=== PATIENT | female | born 1935 | race Caucasian/White ===

== ENCOUNTER → 2017-03-06 | Outpatient (CLI) | payer BC, MEDICARE ==
--- NOTE | 2017-03-09 13:57 | MM ---
Reason for exam: screening (asymptomatic). History: Patient is postmenopausal, history of other cancer, and is nulliparous. Family history of breast cancer in maternal aunt at age 50 and breast cancer in paternal aunt at age 50. Physical Findings: A clinical breast exam by your physician is recommended on an annual basis and results should be correlated with mammographic findings. MG 3D Screening Mammo W/Cad Bilateral CC and MLO view(s) were taken. No prior studies available for comparison. The breast tissue is heterogeneously dense. This may lower the sensitivity of mammography. Finding: There are typically benign coarse diffuse/scattered calcifications in both breasts. There is no discrete abnormality. ASSESSMENT: Benign, BI-RAD 2 RECOMMENDATION: Routine screening mammogram of both breasts in 1 year.
== END | disposition home or self-care (01) ==
LOC: RADMAMWWP 11:38
PROVIDERS: ATTEND Internal Medicine Geriatric Medicine
DX: Z12.31 Encounter for screening mammogram for malignant neoplasm of breast (principal)
CPT/HCPCS: 77063; G0202

== ENCOUNTER → 2018-01-28 | Outpatient (CLI) | payer MEDICARE ==
[2018-01-28 15:52] LABS: Basophils % (A) 1 %; Eosinophils # (A) 0.2 k/uL (0-0.7); Eosinophils % (A) 5 %; HCT 40.3 % (34.0-46.0); HGB 13.2 gm/dL (11.4-16.0); Lymphocytes # (A) 0.6 k/uL (1.0-4.8); Lymphocytes % (A) 13 %; MCH 30.8 pg (25.0-35.0); MCHC 32.6 g/dL (31.0-37.0); MCV 94.4 fL (80.0-100.0); Mean Platelet Volume 7.6; Monocytes # (A) 0.3 k/uL (0-1.0); Monocytes % (A) 7 %; Neutrophils # (A) 3.3 k/uL (1.3-7.7); Neutrophils % (A) 73 %; Platelet Count 230 k/uL (150-450); RBC 4.27 m/uL (3.80-5.40); RDW 13.6 % (11.5-15.5); WBC 4.5 k/uL (3.8-10.6)
[2018-01-28 16:02] LABS: Albumin 3.7 g/dL (3.5-5.0); Calcium 10.2 mg/dL (8.4-10.2); Potassium 4.3 mmol/L (3.5-5.1); Total Bilirubin 0.4 mg/dL (0.2-1.3); Total Protein 6.4 g/dL (6.3-8.2)
[2018-01-29 02:31] LABS: Iron Saturation 19.87 (12.00-45.00)
[2018-01-29 02:39] LABS: Vitamin D 25 Hydroxy 50.9 ng/mL (30.0-100.0)
== END | disposition home or self-care (01) ==
LOC: LABWHC1 15:22
PROVIDERS: ATTEND Nurse Practitioner Acute Care
DX: E55.9 Vitamin D deficiency, unspecified (principal); R53.83 Other fatigue; R26.89 Other abnormalities of gait and mobility; R41.3 Other amnesia
CPT/HCPCS: 36415; 80053; 82306; 82607; 83540; 83550; 84207; 84466; 85025

== ENCOUNTER 2018-02-03 23:32 | Emergency (ER) | payer MEDICARE ==
[2018-02-03 23:55] VITALS: TEMP 96.8
[2018-02-04] MEDS ORDERED: SODIUM CHLORIDE 0.9% 500 ML IV STA (00:04)
[2018-02-04] MEDS ORDERED: ONDANSETRON 4 MG/2 ML VIAL IVP STA (00:04)
--- NOTE | 2018-02-04 00:10 | ED ---
Weakness HPI <HiraLiang - Last Filed: 02/04/18 03:31> - General Source: patient, family, EMS Mode of arrival: EMS Limitations: no limitations <Orly Bartlett - Last Filed: 02/04/18 03:35> - General Chief complaint: Weakness Stated complaint: NVD Time Seen by Provider: 02/03/18 23:43 - History of Present Illness Initial comments: 82-year-old female patient presents to the emergency department today for evaluation of generalized weakness and abdominal discomfort. Patient does have a history of Alzheimer's and is a poor historian, most history comes from sister. She reports that she received a phone call this evening from her sister with complaints that she was feeling very weak, sweaty, and nauseous. She went over to pick her up and was unable to get her feeling any better so they presented here for further evaluation. Patient denies any chest pain or shortness of breath. States that she is having discomfort in her upper abdomen. Patient denies any actual vomiting but states she does feel very nauseous. She denies any constipation or diarrhea. Denies any recent fever or chills. Denies any history of abdominal surgery. Patient denies any recent rash , diarrhea, constipation, back pain, numbness, tingling, dizziness, hematuria, dysuria, urinary urgency, urinary frequency, headache, visual changes, or any other complaints. (Orly Bartlett) - Related Data Previous Rx's Medication Instructions Recorded Azithromycin [Zithromax Z-pack] 0 mg PO DIRECTED #6 tab 02/04/18 Allergies Allergy/AdvReac Type Severity Reaction Status Date / Time Penicillins Allergy Unknown Verified 02/04/18 00:33 Review of Systems ROS Other: All systems not noted in ROS Statement are negative. <Liang Iniguez - Last Filed: 02/04/18 03:31> ROS Other: All systems not noted in ROS Statement are negative. <Orly Bartlett - Last Filed: 02/04/18 03:35> ROS Statement: Those systems with pertinent positive or pertinent negative responses have been documented in the HPI. Past Medical History Past Medical History: Dementia, Thyroid Disorder Additional Past Medical History / Comment(s): osteoporosis, foot neuropathy, History of Any Multi-Drug Resistant Organisms: None Reported Past Psychological History: No Psychological Hx Reported Smoking Status: Never smoker Past Alcohol Use History: Occasional Past Drug Use History: None Reported <Orly Bartlett - Last Filed: 02/04/18 03:35> General Exam Limitations: no limitations General appearance: alert, in no apparent distress, other (This is a well- developed, well-nourished elderly female patient in no acute distress. Vital signs upon presentation are temperature 96.8F, pulse 68, respirations 16, blood pressure 171/74, pulse ox 92% on room air.) Eye exam: Present: normal appearance, PERRL, EOMI. Absent: scleral icterus, conjunctival injection, periorbital swelling ENT exam: Present: normal exam, normal oropharynx, mucous membranes moist Respiratory exam: Present: normal lung sounds bilaterally. Absent: respiratory distress, wheezes, rales, rhonchi, stridor Cardiovascular Exam: Present: regular rate, normal rhythm, normal heart sounds. Absent: systolic murmur, diastolic murmur, rubs, gallop, clicks GI/Abdominal exam: Present: soft, tenderness (Right upper quadrant tenderness), normal bowel sounds. Absent: distended, guarding, rebound, rigid Neurological exam: Present: alert, oriented X3, CN II-XII intact Psychiatric exam: Present: normal affect, normal mood Skin exam: Present: warm, dry, intact, normal color. Absent: rash <Orly Bartlett - Last Filed: 02/04/18 03:35> Vital Signs 02/03/18 02/04/18 02/04/18 23:49 01:22 01:33 Temperature 96.8 F L 96.8 F L Pulse Rate 68 63 76 Respiratory 16 16 16 Rate Blood Pressure 171/74 175/81 146/74 O2 Sat by Pulse 92 L 96 96 Oximetry 02/04/18 03:16 Temperature Pulse Rate 75 Respiratory 16 Rate Blood Pressure 171/91 O2 Sat by Pulse 96 Oximetry EKG Findings - EKG Comments: EKG Findings:: EKG obtained at 2346 shows normal sinus rhythm with a ventricular rate is 64, UT interval 170, QRS duration 84, QTC 446, QTc 460. No evidence of ST elevation or depression. <Orly Bartlett - Last Filed: 02/04/18 03:35> Medical Decision Making - Lab Data Result diagrams: 02/04/18 00:28 02/04/18 00:28 <Liang Iniguez - Last Filed: 02/04/18 03:31> - Lab Data Result diagrams: 02/04/18 00:28 02/04/18 00:28 - Radiology Data Radiology results: report reviewed, image reviewed <Orly Bartlett - Last Filed: 02/04/18 03:35> - Medical Decision Making I saw this patient in conjunction with the physician technical staff assistant. I performed independent history and physical exam. Agree with case management. (Liang Iniguez) 82-year-old female patient presents to the emergency department today for evaluation of weakness, upper abdominal pain, and nausea. Physical examination did reveal some midepigastric tenderness. Lungs are clear to auscultation with good air movement. Patient denied any cough or congestion. Labs reviewed and are relatively unremarkable, mild dehydration. Chest x-ray showed bilateral patchy pneumonia. CT abdomen and pelvis was obtained and showed no acute intra- abdominal process but did reveal basilar lung infiltrates. Did discuss findings and results with the patient and her family. Patient upon reevaluation is feeling much better. Respirations are even and unlabored, again lungs are clear. Oxygen saturation is 96-97% on room air. She would like to be discharged home to attempt outpatient antibiotic treatment. Sr. is present and states she is able to follow-up with the primary care physician over the next 1-2 days. Return parameters discussed in detail. They verbalize understanding and agree with this plan. (Orly Bartlett) - Lab Data Lab Results 02/04/18 02/04/18 02/04/18 Range/Units 00:28 00:28 00:28 WBC 10.0 (3.8-10.6) k/uL RBC 4.34 (3.80-5.40) m/uL Hgb 13.6 (11.4-16.0) gm/dL Hct 40.4 (34.0-46.0) % MCV 92.9 (80.0-100.0) fL MCH 31.3 (25.0-35.0) pg MCHC 33.7 (31.0-37.0) g/dL RDW 13.5 (11.5-15.5) % Plt Count 244 (150-450) k/uL Neutrophils % 87 % Lymphocytes % 8 % Monocytes % 4 % Eosinophils % 1 % Basophils % 0 % Neutrophils # 8.7 H (1.3-7.7) k/uL Lymphocytes # 0.8 L (1.0-4.8) k/uL Monocytes # 0.3 (0-1.0) k/uL Eosinophils # 0.1 (0-0.7) k/uL Basophils # 0.0 (0-0.2) k/uL PT (9.0-12.0) sec INR (<1.2) APTT (22.0-30.0) sec Sodium 135 L (137-145) mmol/L Potassium 4.3 (3.5-5.1) mmol/L Chloride 102 (98-107) mmol/L Carbon Dioxide 26 (22-30) mmol/L Anion Gap 7 mmol/L BUN 26 H (7-17) mg/dL Creatinine 0.83 (0.52-1.04) mg/dL Est GFR (CKD-EPI)AfAm 77 (>60 ml/min/1.73 sqM) Est GFR (CKD-EPI)NonAf 67 (>60 ml/min/1.73 sqM) Glucose 167 H (74-99) mg/dL Calcium 10.7 H (8.4-10.2) mg/dL Magnesium 2.1 (1.6-2.3) mg/dL Total Bilirubin 0.5 (0.2-1.3) mg/dL AST 28 (14-36) U/L ALT 41 (9-52) U/L Alkaline Phosphatase 96 (38-126) U/L Total Creatine Kinase 46 (30-135) U/L CK-MB (CK-2) 1.3 (0.0-2.4) ng/mL CK-MB (CK-2) Rel Index 2.8 Troponin I <0.012 (0.000-0.034) ng/mL Total Protein 6.4 (6.3-8.2) g/dL Albumin 3.9 (3.5-5.0) g/dL Urine Color Urine Appearance (Clear) Urine pH (5.0-8.0) Ur Specific [place] (1.001-1.035) Urine Protein (Negative) Urine Glucose (UA) (Negative) Urine Ketones (Negative) Urine Blood (Negative) Urine Nitrite (Negative) Urine Bilirubin (Negative) Urine Urobilinogen (<2.0) mg/dL Ur Leukocyte Esterase (Negative) Urine RBC (0-5) /hpf Urine WBC (0-5) /hpf Ur Squamous Epith Cells (0-4) /hpf Urine Bacteria (None) /hpf Urine Mucus (None) /hpf 02/04/18 02/04/18 Range/Units 00:28 01:49 WBC (3.8-10.6) k/uL RBC (3.80-5.40) m/uL Hgb (11.4-16.0) gm/dL Hct (34.0-46.0) % MCV (80.0-100.0) fL MCH (25.0-35.0) pg MCHC (31.0-37.0) g/dL RDW (11.5-15.5) % Plt Count (150-450) k/uL Neutrophils % % Lymphocytes % % Monocytes % % Eosinophils % % Basophils % % Neutrophils # (1.3-7.7) k/uL Lymphocytes # (1.0-4.8) k/uL Monocytes # (0-1.0) k/uL Eosinophils # (0-0.7) k/uL Basophils # (0-0.2) k/uL PT 9.7 (9.0-12.0) sec INR 1.0 (<1.2) APTT 21.9 L (22.0-30.0) sec Sodium (137-145) mmol/L Potassium (3.5-5.1) mmol/L Chloride (98-107) mmol/L Carbon Dioxide (22-30) mmol/L Anion Gap mmol/L BUN (7-17) mg/dL Creatinine (0.52-1.04) mg/dL Est GFR (CKD-EPI)AfAm (>60 ml/min/1.73 sqM) Est GFR (CKD-EPI)NonAf (>60 ml/min/1.73 sqM) Glucose (74-99) mg/dL Calcium (8.4-10.2) mg/dL Magnesium (1.6-2.3) mg/dL Total Bilirubin (0.2-1.3) mg/dL AST (14-36) U/L ALT (9-52) U/L Alkaline Phosphatase (38-126) U/L Total Creatine Kinase (30-135) U/L CK-MB (CK-2) (0.0-2.4) ng/mL CK-MB (CK-2) Rel Index Troponin I (0.000-0.034) ng/mL Total Protein (6.3-8.2) g/dL Albumin (3.5-5.0) g/dL Urine Color Light Yellow Urine Appearance Clear (Clear) Urine pH 6.0 (5.0-8.0) Ur Specific [place] 1.016 (1.001-1.035) Urine Protein Negative (Negative) Urine Glucose (UA) Trace H (Negative) Urine Ketones 1+ H (Negative) Urine Blood Negative (Negative) Urine Nitrite Negative (Negative) Urine Bilirubin Negative (Negative) Urine Urobilinogen <2.0 (<2.0) mg/dL Ur Leukocyte Esterase Small H (Negative) Urine RBC 4 (0-5) /hpf Urine WBC 4 (0-5) /hpf Ur Squamous Epith Cells <1 (0-4) /hpf Urine Bacteria Rare H (None) /hpf Urine Mucus Rare H (None) /hpf - Radiology Data CT abdomen and pelvis with contrast was obtained. Report was reviewed in its entirety. Impression by Dr. Mejia shows cardiomegaly with basilar pulmonary infiltrates. This probably relates inflammatory disease. Two-view x-ray of the chest is obtained. There are patchy bilateral pulmonary infiltrates in right mid and upper lung field as well as left lung base. There is no gross heart failure. Thoracic aorta is erythematous. There are chest leads. There are probably small pleural effusions. Bones are osteopenic. Impression by Dr. Mejia shows bilateral patchy pneumonia. No gross heart failure. (Orly Bartlett) Disposition <Liang Iniguez - Last Filed: 02/04/18 03:31> Is patient prescribed a controlled substance at d/c from ED?: No Time of Disposition: 03:31 <Orly Bartlett - Last Filed: 02/04/18 03:35> Clinical Impression: Pneumonia Disposition: HOME SELF-CARE Condition: Good Instructions: Pneumonia (ED) Additional Instructions: Complete antibiotic prescription and full. Follow-up with your primary care physician for recheck in 1-2 days. Return here immediately for any new, worsening, or concerning symptoms. Prescriptions: Azithromycin [Zithromax Z-pack] 0 mg PO DIRECTED #6 tab Referrals: Bertram Herndon MD [Primary Care Provider] - 1-2 days
[2018-02-04 00:45] LABS: Basophils % (A) 0 %; Eosinophils # (A) 0.1 k/uL (0-0.7); Eosinophils % (A) 1 %; HCT 40.4 % (34.0-46.0); HGB 13.6 gm/dL (11.4-16.0); Lymphocytes # (A) 0.8 k/uL (1.0-4.8); Lymphocytes % (A) 8 %; MCH 31.3 pg (25.0-35.0); MCHC 33.7 g/dL (31.0-37.0); MCV 92.9 fL (80.0-100.0); Mean Platelet Volume 7.3; Monocytes # (A) 0.3 k/uL (0-1.0); Monocytes % (A) 4 %; Neutrophils # (A) 8.7 k/uL (1.3-7.7); Neutrophils % (A) 87 %; Platelet Count 244 k/uL (150-450); RBC 4.34 m/uL (3.80-5.40); RDW 13.5 % (11.5-15.5)
[2018-02-04 01:02] LABS: Albumin 3.9 g/dL (3.5-5.0); Calcium 10.7 mg/dL (8.4-10.2); Magnesium 2.1 mg/dL (1.6-2.3); Potassium 4.3 mmol/L (3.5-5.1); Prothrombin Time 9.7 sec (9.0-12.0); Total Bilirubin 0.5 mg/dL (0.2-1.3); Total Protein 6.4 g/dL (6.3-8.2)
[2018-02-04 01:10] LABS: Creatine Kinase 46 U/L (30-135)
--- NOTE | 2018-02-04 01:12 | XR ---
EXAMINATION TYPE: XR chest 2V DATE OF EXAM: 02/04/2018 COMPARISON: NONE HISTORY: Weakness TECHNIQUE: Frontal and lateral views of the chest are obtained. FINDINGS: There are patchy bilateral pulmonary infiltrates in the right mid and upper lung field as well as the left lung base. There is no gross heart failure. Thoracic aorta is atheromatous. There ar e chest leads. There are probably small pleural effusions. Bones are osteopenic. IMPRESSION: Bilateral patchy pneumonia. No gross heart failure.
[2018-02-04 01:23] LABS: Creatine Kinase MB 1.3 ng/mL (0.0-2.4); Troponin I <0.012 ng/mL (0.000-0.034)
[2018-02-04 01:24] LABS: Partial Thromboplastin Time 21.9 sec (22.0-30.0)
[2018-02-04 02:08] LABS: Appearance,Urine Clear (Clear); Bacteria,Urine Rare /hpf; Bilirubin,Urine Negative (Negative); Blood,Urine Negative (Negative); Color,Urine Light Yellow; Glucose,Urine (UA) Trace (Negative); Ketones,Urine 1+ (Negative); Leukocyte Esterase,Urine Small (Negative); Mucus,Urine Rare /hpf; Nitrite,Urine Negative (Negative); Protein,Urine Negative (Negative); RBC,Urine 4 /hpf (0-5); Specific Gravity,Urine 1.016 (1.001-1.035); Squamous Epithelial Cell,Urine <1 /hpf (0-4); Urobilinogen,Urine <2.0 mg/dL (<2.0); WBC,Urine 4 /hpf (0-5)
--- NOTE | 2018-02-04 03:00 | CT ---
EXAMINATION TYPE: CT abdomen pelvis w con DATE OF EXAM: 02/04/2018 COMPARISON: None HISTORY: No prior, NVD, weakness, gen abd pain CT DLP: 510.60 mGycm Automated exposure control for dose reduction was used. TECHNIQUE: Helical acquisition of images was performed from the lung bases through the pelvis. CONTRAST: Performed without Oral Contrast and with IV Contrast, patient injected with 100 mL of Isovue 370. FINDINGS: There is some mild patchy infiltrate and atelectasis at the lung bases and more on the left side. Hea rt is enlarged. There is no pleural effusion. There are multiple cysts in the liver that measure up to 3 cm. Bile ducts are not dilated. Gallbladde r appears normal. Spleen appears normal. There is no pancreatic mass. There is no adrenal mass. Kidneys show satisfactory contrast opacification. There is no hydronephrosi s. There are bilateral renal cortical cysts that measure up to 2 cm. There is no retroperitoneal scotty opathy. Abdominal aorta is atheromatous. There is lumbar levorotoscoliosis. Appendix appears normal. There is no intestinal wall thickening. There are no dilated loops. Bladder distends smoothly. There is no free fluid in the pelvis. There are multiple diverticula of the sigmoi d colon. IMPRESSION: CARDIOMEGALY. BASILAR PULMONARY INFILTRATES. THIS PROBABLY RELATES TO INFLAMMATORY DISEASE. MULTIPLE HEPATIC AND RENAL CYSTS. ATHEROSCLEROTIC VASCULAR DISEASE. SIGMOID DIVERTICULOSIS. SPONDYLOTIC CHANGES WITH LUMBAR LEVOROTOSCOLIOSIS.
[2018-02-04] MEDS ORDERED: AZITHROMYCIN 500 MG TAB PO STA (03:28)
[2018-02-04 03:38] VITALS: BP 146/92; PULSE 85; RESP 18
== END 2018-02-04 03:52 | disposition home or self-care (01) ==
LOC: EC 23:32
DX: J18.9 Pneumonia, unspecified organism (principal); I51.7 Cardiomegaly; R91.8 Other nonspecific abnormal finding of lung field; R10.10 Upper abdominal pain, unspecified; E86.0 Dehydration; G30.9 Alzheimer's disease, unspecified; F02.80 Dementia in other diseases classified elsewhere, unspecified severity, without behavioral disturbance, psychotic disturbance, mood disturbance, and anxiety; Z88.0 Allergy status to penicillin
CPT/HCPCS: 36415; 93005; 80053; 82550; 82553; 83735; 84484; 85025; 85610; 85730; 81001; 87086; 71046; 74177; 99285; 96374; J2405; Q9967

== ENCOUNTER 2018-05-24 17:13 | Emergency (ER) | payer MEDICARE ==
[2018-05-24 17:21] VITALS: TEMP 97.6
[2018-05-24] MEDS ORDERED: SODIUM CHLORIDE 0.9% 1,000 ML IV STA (17:32)
--- NOTE | 2018-05-24 18:12 | XR ---
EXAMINATION TYPE: XR chest 2V DATE OF EXAM: 05/24/2018 COMPARISON: 02/04/2018 HISTORY: Shortness of breath TECHNIQUE: Frontal and lateral views of the chest are obtained. FINDINGS: Scattered senescent parenchymal changes noted. Patchy perihilar infiltrates may reflect developing pneumonia. Follow-up until resolution advised as well as clinical correlation. Heart size is stable. Mediastinal structures are stable and grossly unremarkable. No evidence for hilar prominence. Degenerative changes dorsal spine. IMPRESSION: 1. Patchy perihilar infiltrates may reflect developing pneumonia. Follow-up until resolution advised as well as clinical correlation.
[2018-05-24 18:15] LABS: Basophils # (A) 0.1 k/uL (0-0.2); Basophils % (A) 1 %; Eosinophils # (A) 0.4 k/uL (0-0.7); Eosinophils % (A) 9 %; HGB 13.8 gm/dL (11.4-16.0); Lymphocytes # (A) 0.6 k/uL (1.0-4.8); Lymphocytes % (A) 15 %; MCH 30.8 pg (25.0-35.0); MCHC 32.8 g/dL (31.0-37.0); MCV 93.9 fL (80.0-100.0); Mean Platelet Volume 7.4; Monocytes # (A) 0.3 k/uL (0-1.0); Monocytes % (A) 6 %; Neutrophils # (A) 3.1 k/uL (1.3-7.7); Neutrophils % (A) 69 %; Platelet Count 233 k/uL (150-450); RBC 4.47 m/uL (3.80-5.40); RDW 13.8 % (11.5-15.5); WBC 4.4 k/uL (3.8-10.6)
[2018-05-24 18:24] LABS: Albumin 3.6 g/dL (3.5-5.0); Calcium 10.4 mg/dL (8.4-10.2); Magnesium 2.2 mg/dL (1.6-2.3); Phosphorus 3.6 mg/dL (2.5-4.5); Potassium 4.6 mmol/L (3.5-5.1); Total Bilirubin 0.3 mg/dL (0.2-1.3); Total Protein 6.4 g/dL (6.3-8.2)
[2018-05-24 18:26] LABS: INR 0.9 (<1.2); Partial Thromboplastin Time 22.2 sec (22.0-30.0); Prothrombin Time 9.5 sec (9.0-12.0)
[2018-05-24 18:30] LABS: Creatine Kinase 29 U/L (30-135)
[2018-05-24 18:42] LABS: Creatine Kinase MB 0.8 ng/mL (0.0-2.4); Troponin I <0.012 ng/mL (0.000-0.034)
--- NOTE | 2018-05-24 19:21 | ED ---
Dizziness HPI - General Chief Complaint: Dizziness Stated Complaint: Dizziness Time Seen by Provider: 05/24/18 17:32 Source: patient, RN notes reviewed, old records reviewed Mode of arrival: wheelchair Limitations: no limitations - History of Present Illness Initial Comments: This is an 83-year-old female the ER for evaluation. Patient's brought in by family for evaluation weakness lightheadedness, feels like she may be having some near syncope of some dizziness. No headache no chest pain or shortness of breath no abdominal pain no significant travel history no known sick contacts. Patient does admit to occasional cough is poor strain secondary to history of underlying dementia MD Complaint: dizziness Timing: gradual onset, intermittent Description: lightheadedness, nausea History of Same: Yes History of Trauma: No Severity: mild Improves With: rehydration, rest Worsens With: movement Associated Symptoms: denies other symptoms - Related Data Home Medications Medication Instructions Recorded Confirmed Aspirin EC [Ecotrin Low Dose] 162 mg PO DAILY 05/24/18 05/24/18 Calcium Carbonate/Vitamin D3 1 tab PO BID 05/24/18 05/24/18 [Calcium 600-Vit D3 400 Caplet] Cranberry Fruit Concentrate 450 mg PO DAILY 05/24/18 05/24/18 [Cranberry] Cyanocobalamin (Vitamin B-12) 1,000 mcg PO DAILY 05/24/18 05/24/18 [Vitamin B-12] Dorzolamide-Timol 2.23%/0.68% 1 drop BOTH EYES BID 05/24/18 05/24/18 [Cosopt] Latanoprost/Pf [Latanoprost 0.005% 1 drop BOTH EYES HS 05/24/18 05/24/18 Eye Drop] Memantine HCl/Donepezil HCl 1 cap PO DAILY 05/24/18 05/24/18 [Namzaric 14 mg-10 mg Capsule] Multivit-Min/Iron/Folic/Lutein 1 tab PO DAILY 05/24/18 05/24/18 [Centrum Silver Women Tablet] Kerens-3 Fatty Acids/Fish Oil [Fish 1 cap PO BID 05/24/18 05/24/18 Oil 1,000 mg Softgel] Prevagen (Memory Vitamin) 1 tab PO DAILY 05/24/18 05/24/18 Previous Rx's Medication Instructions Recorded Levofloxacin [Levaquin] 750 mg PO DAILY #7 tab 05/24/18 Allergies Allergy/AdvReac Type Severity Reaction Status Date / Time Penicillins Allergy Unknown Verified 05/24/18 18:19 Review of Systems ROS Statement: Those systems with pertinent positive or pertinent negative responses have been documented in the HPI. ROS Other: All systems not noted in ROS Statement are negative. Past Medical History Past Medical History: Dementia, Thyroid Disorder Additional Past Medical History / Comment(s): osteoporosis, foot neuropathy, History of Any Multi-Drug Resistant Organisms: None Reported Additional Past Surgical History / Comment(s): cataract,thryroidectomy Past Psychological History: No Psychological Hx Reported Smoking Status: Never smoker Past Alcohol Use History: Occasional Past Drug Use History: None Reported General Exam Limitations: no limitations General appearance: alert, in no apparent distress Head exam: Present: atraumatic, normocephalic, normal inspection Eye exam: Present: normal appearance, PERRL, EOMI. Absent: scleral icterus, conjunctival injection, periorbital swelling ENT exam: Present: normal exam, mucous membranes moist Neck exam: Present: normal inspection. Absent: tenderness, meningismus, lymphadenopathy Respiratory exam: Present: normal lung sounds bilaterally. Absent: respiratory distress, wheezes, rales, rhonchi, stridor Cardiovascular Exam: Present: regular rate, normal rhythm, normal heart sounds. Absent: systolic murmur, diastolic murmur, rubs, gallop, clicks GI/Abdominal exam: Present: soft, normal bowel sounds. Absent: distended, tenderness, guarding, rebound, rigid Extremities exam: Present: normal inspection, full ROM, normal capillary refill. Absent: tenderness, pedal edema, joint swelling, calf tenderness Back exam: Present: normal inspection Neurological exam: Present: alert, oriented X3, CN II-XII intact Psychiatric exam: Present: normal affect, normal mood Skin exam: Present: warm, dry, intact, normal color. Absent: rash Course Vital Signs 05/24/18 05/24/18 05/24/18 17:19 18:00 18:30 Temperature 97.6 F Pulse Rate 64 79 Respiratory 20 20 Rate Blood Pressure 135/75 125/89 125/89 O2 Sat by Pulse 98 97 Oximetry 05/24/18 05/24/18 05/24/18 19:00 19:30 19:50 Temperature Pulse Rate 74 81 Respiratory 16 23 Rate Blood Pressure 130/87 128/89 118/80 O2 Sat by Pulse 94 L 93 L Oximetry 05/24/18 05/24/18 05/24/18 20:00 20:10 20:20 Temperature Pulse Rate 80 74 Respiratory 15 36 H 18 Rate Blood Pressure 118/80 O2 Sat by Pulse 94 L Oximetry 05/24/18 05/24/18 05/24/18 20:30 20:40 20:50 Temperature Pulse Rate 67 76 64 Respiratory 21 18 16 Rate Blood Pressure 140/82 136/86 136/86 O2 Sat by Pulse 94 L 95 95 Oximetry 05/24/18 05/24/18 05/24/18 21:00 21:10 21:20 Temperature Pulse Rate 83 64 73 Respiratory 15 11 L 22 Rate Blood Pressure 136/86 125/90 125/90 O2 Sat by Pulse 94 L 97 96 Oximetry 05/24/18 21:30 Temperature Pulse Rate Respiratory Rate Blood Pressure 125/90 O2 Sat by Pulse Oximetry - Reevaluation(s) Reevaluation #1: Medical record is reviewed Patient discussed at length findings, family states patient is not UL in the hospital setting would like to take patient home EKG Findings - EKG Comments: EKG Findings:: EKG shows sinus rhythm rate of 89, MT 144, QRS 70, QTc 445 Medical Decision Making - Medical Decision Making 83 female positive pneumonia, patient would like to be child on outpatient therapy if she states she has no significant complaints - Lab Data Result diagrams: 05/24/18 17:47 05/24/18 17:47 Lab Results 05/24/18 05/24/18 05/24/18 Range/Units 17:47 17:47 17:47 WBC 4.4 (3.8-10.6) k/uL RBC 4.47 (3.80-5.40) m/uL Hgb 13.8 (11.4-16.0) gm/dL Hct 42.0 (34.0-46.0) % MCV 93.9 (80.0-100.0) fL MCH 30.8 (25.0-35.0) pg MCHC 32.8 (31.0-37.0) g/dL RDW 13.8 (11.5-15.5) % Plt Count 233 (150-450) k/uL Neutrophils % 69 % Lymphocytes % 15 % Monocytes % 6 % Eosinophils % 9 % Basophils % 1 % Neutrophils # 3.1 (1.3-7.7) k/uL Lymphocytes # 0.6 L (1.0-4.8) k/uL Monocytes # 0.3 (0-1.0) k/uL Eosinophils # 0.4 (0-0.7) k/uL Basophils # 0.1 (0-0.2) k/uL PT (9.0-12.0) sec INR (<1.2) APTT (22.0-30.0) sec Sodium 137 (137-145) mmol/L Potassium 4.6 (3.5-5.1) mmol/L Chloride 103 (98-107) mmol/L Carbon Dioxide 28 (22-30) mmol/L Anion Gap 6 mmol/L BUN 22 H (7-17) mg/dL Creatinine 0.82 (0.52-1.04) mg/dL Est GFR (CKD-EPI)AfAm 78 (>60 ml/min/1.73 sqM) Est GFR (CKD-EPI)NonAf 67 (>60 ml/min/1.73 sqM) Glucose 143 H (74-99) mg/dL Plasma Lactic Acid Guy (0.7-2.0) mmol/L Calcium 10.4 H (8.4-10.2) mg/dL Phosphorus 3.6 (2.5-4.5) mg/dL Magnesium 2.2 (1.6-2.3) mg/dL Total Bilirubin 0.3 (0.2-1.3) mg/dL AST 27 (14-36) U/L ALT 38 (9-52) U/L Alkaline Phosphatase 88 (38-126) U/L Total Creatine Kinase 29 L (30-135) U/L CK-MB (CK-2) 0.8 (0.0-2.4) ng/mL CK-MB (CK-2) Rel Index 2.8 Troponin I <0.012 (0.000-0.034) ng/mL Total Protein 6.4 (6.3-8.2) g/dL Albumin 3.6 (3.5-5.0) g/dL Urine Color Urine Appearance (Clear) Urine pH (5.0-8.0) Ur Specific [place] (1.001-1.035) Urine Protein (Negative) Urine Glucose (UA) (Negative) Urine Ketones (Negative) Urine Blood (Negative) Urine Nitrite (Negative) Urine Bilirubin (Negative) Urine Urobilinogen (<2.0) mg/dL Ur Leukocyte Esterase (Negative) 05/24/18 05/24/18 05/24/18 Range/Units 17:47 17:47 20:19 WBC (3.8-10.6) k/uL RBC (3.80-5.40) m/uL Hgb (11.4-16.0) gm/dL Hct (34.0-46.0) % MCV (80.0-100.0) fL MCH (25.0-35.0) pg MCHC (31.0-37.0) g/dL RDW (11.5-15.5) % Plt Count (150-450) k/uL Neutrophils % % Lymphocytes % % Monocytes % % Eosinophils % % Basophils % % Neutrophils # (1.3-7.7) k/uL Lymphocytes # (1.0-4.8) k/uL Monocytes # (0-1.0) k/uL Eosinophils # (0-0.7) k/uL Basophils # (0-0.2) k/uL PT 9.5 (9.0-12.0) sec INR 0.9 (<1.2) APTT 22.2 (22.0-30.0) sec Sodium (137-145) mmol/L Potassium (3.5-5.1) mmol/L Chloride (98-107) mmol/L Carbon Dioxide (22-30) mmol/L Anion Gap mmol/L BUN (7-17) mg/dL Creatinine (0.52-1.04) mg/dL Est GFR (CKD-EPI)AfAm (>60 ml/min/1.73 sqM) Est GFR (CKD-EPI)NonAf (>60 ml/min/1.73 sqM) Glucose (74-99) mg/dL Plasma Lactic Acid Guy 1.5 (0.7-2.0) mmol/L Calcium (8.4-10.2) mg/dL Phosphorus (2.5-4.5) mg/dL Magnesium (1.6-2.3) mg/dL Total Bilirubin (0.2-1.3) mg/dL AST (14-36) U/L ALT (9-52) U/L Alkaline Phosphatase (38-126) U/L Total Creatine Kinase (30-135) U/L CK-MB (CK-2) (0.0-2.4) ng/mL CK-MB (CK-2) Rel Index Troponin I (0.000-0.034) ng/mL Total Protein (6.3-8.2) g/dL Albumin (3.5-5.0) g/dL Urine Color Light Yellow Urine Appearance Clear (Clear) Urine pH 5.5 (5.0-8.0) Ur Specific [place] 1.010 (1.001-1.035) Urine Protein Negative (Negative) Urine Glucose (UA) Negative (Negative) Urine Ketones Negative (Negative) Urine Blood Negative (Negative) Urine Nitrite Negative (Negative) Urine Bilirubin Negative (Negative) Urine Urobilinogen <2.0 (<2.0) mg/dL Ur Leukocyte Esterase Negative (Negative) - Radiology Data Radiology results: report reviewed (Chest x-ray is positive for pneumonia), image reviewed Disposition Clinical Impression: Community acquired pneumonia Disposition: HOME SELF-CARE Condition: Good Instructions: Community Acquired Pneumonia (ED) Prescriptions: Levofloxacin [Levaquin] 750 mg PO DAILY #7 tab Is patient prescribed a controlled substance at d/c from ED?: No Referrals: Bertram Herndon MD [Primary Care Provider] - 1-2 days
[2018-05-24 20:36] LABS: Appearance,Urine Clear (Clear); Bilirubin,Urine Negative (Negative); Blood,Urine Negative (Negative); Color,Urine Light Yellow; Glucose,Urine (UA) Negative (Negative); Ketones,Urine Negative (Negative); Leukocyte Esterase,Urine Negative (Negative); Nitrite,Urine Negative (Negative); PH, Urine 5.5 (5.0-8.0); Protein,Urine Negative (Negative); Urobilinogen,Urine <2.0 mg/dL (<2.0)
[2018-05-24] MEDS ORDERED: LEVOFLOXACIN 750 MG TAB PO STA (21:20)
[2018-05-24 21:42] VITALS: BP 125/90; PULSE 73; RESP 22
== END 2018-05-24 21:42 | disposition home or self-care (01) ==
LOC: EC 17:13
DX: J18.9 Pneumonia, unspecified organism (principal); F03.90 Unspecified dementia, unspecified severity, without behavioral disturbance, psychotic disturbance, mood disturbance, and anxiety; M81.0 Age-related osteoporosis without current pathological fracture; Z79.82 Long term (current) use of aspirin; Z79.899 Other long term (current) drug therapy; Z88.0 Allergy status to penicillin
CPT/HCPCS: 36415; 71046; 80053; 81003; 82550; 82553; 83605; 83735; 84100; 84484; 85025; 85610; 85730; 87086; 93005; 96360; 99284

== ENCOUNTER 2018-11-12 19:02 | Emergency (ER) | payer MEDICARE ==
--- NOTE | 2018-11-12 20:22 | ED ---
Nausea/Vomiting/Diarrhea HPI - General Source: patient Mode of arrival: wheelchair Limitations: no limitations <Patti Alaniz - Last Filed: 11/13/18 00:39> <Christa Monique - Last Filed: 11/13/18 22:22> - General Chief complaint: Nausea/Vomiting/Diarrhea Stated complaint: CONSTIPATION Time Seen by Provider: 11/12/18 20:13 - History of Present Illness Initial comments: 83-year-old female with history of constipation and Alzheimer's presenting for evaluation of constipation. Patient is accompanied by her sister who states patient drinks prune juice daily and struggles with constipation on and off. She states that patient was stating she cannot have a bowel movement for the past 2-3 days. If she did go is a very small amount of loose stool. Patient was given MiraLAX a total of 2 times today. They state that she continues to have a very small amount of loose stool. Family was concerned that there was possible area of constipation still. Patient denies any abdominal pain. She states she has pressure and pain at the rectum. Denies any melena or hematochezia. Denies any vomiting or nausea. No history of fever. Remaining review of systems negative upon arrival patient appears well signs of acute distress or discomfort. (Patti Alaniz) - Related Data Home Medications Medication Instructions Recorded Confirmed Aspirin EC [Ecotrin Low Dose] 162 mg PO DAILY 05/24/18 11/12/18 Calcium Carbonate/Vitamin D3 1 tab PO BID 05/24/18 11/12/18 [Calcium 600-Vit D3 400 Caplet] Cranberry Fruit Concentrate 450 mg PO DAILY 05/24/18 11/12/18 [Cranberry] Cyanocobalamin (Vitamin B-12) 1,000 mcg PO DAILY 05/24/18 11/12/18 [Vitamin B-12] Dorzolamide-Timol 2.23%/0.68% 1 drop BOTH EYES BID 05/24/18 11/12/18 [Cosopt] Latanoprost/Pf [Latanoprost 0.005% 1 drop BOTH EYES HS 05/24/18 11/12/18 Eye Drop] Memantine HCl/Donepezil HCl 1 cap PO DAILY 05/24/18 11/12/18 [Namzaric 14 mg-10 mg Capsule] Multivit-Min/Iron/Folic/Lutein 1 tab PO DAILY 05/24/18 11/12/18 [Centrum Silver Women Tablet] [place]-3 Fatty Acids/Fish Oil [Fish 1 cap PO BID 05/24/18 11/12/18 Oil 1,000 mg Softgel] Prevagen (Memory Vitamin) 1 tab PO DAILY 05/24/18 11/12/18 Previous Rx's Medication Instructions Recorded Docusate [Colace] 100 mg PO DAILY 7 Days #7 capsule 11/12/18 Allergies Allergy/AdvReac Type Severity Reaction Status Date / Time Penicillins Allergy Unknown Verified 05/24/18 18:19 Review of Systems ROS Other: All systems not noted in ROS Statement are negative. <Patti Alaniz - Last Filed: 11/13/18 00:39> ROS Other: All systems not noted in ROS Statement are negative. <Christa Monique - Last Filed: 11/13/18 22:22> ROS Statement: Those systems with pertinent positive or pertinent negative responses have been documented in the HPI. Past Medical History Past Medical History: Dementia, Thyroid Disorder Additional Past Medical History / Comment(s): osteoporosis, foot neuropathy, History of Any Multi-Drug Resistant Organisms: None Reported Additional Past Surgical History / Comment(s): cataract,thryroidectomy Past Psychological History: No Psychological Hx Reported Smoking Status: Never smoker Past Alcohol Use History: Occasional Past Drug Use History: None Reported <Patti Alaniz - Last Filed: 11/13/18 00:39> General Exam Limitations: no limitations <Patti Alaniz - Last Filed: 11/13/18 00:39> - General Exam Comments Initial Comments: General: The patient is awake and alert, in no distress, and does not appear acutely ill. Eye: +3 mm pupils are equal, round and reactive to light, extra-ocular movements are intact. No nystagmus. There is normal conjunctiva bilaterally. No signs of icterus. Ears, nose, mouth and throat: There are moist mucous membranes and no oral lesions. Neck: The neck is supple, there is no tenderness or JVD. Cardiovascular: There is a regular rate and rhythm. No murmur, rub or gallop is appreciated. Respiratory: Lungs are clear to auscultation, respirations are non-labored, breath sounds are equal. No wheezes, stridor, rales, or rhonchi. Gastrointestinal: Soft, non-distended, non-tender abdomen without masses or organomegaly noted. There is no rebound or guarding present. No CVA tenderness. Bowel sounds are unremarkable. Rectal exam: Soft stool ball present on digital rectal exam. No gross blood. No melena. External and internal hemorrhoids palpable. No bleeding. Musculoskeletal: Normal ROM, no tenderness. Strength 5/5. Sensation intact. Pulses equal bilaterally 2+. Neurological: A&O x 2; name and place. CN II-XII intact, There are no obvious motor or sensory deficits. Coordination appears grossly intact. Speech is normal. Skin: Skin is warm and dry and no rashes or lesions are noted. Psychiatric: Cooperative, appropriate mood & affect, normal judgment. (Patti Alaniz) Course Vital Signs 11/12/18 11/13/18 20:07 00:14 Temperature 97.6 F 98.1 F Pulse Rate 72 78 Respiratory 20 16 Rate Blood Pressure 129/83 136/87 O2 Sat by Pulse 96 98 Oximetry Medical Decision Making <Patti Alaniz - Last Filed: 11/13/18 00:39> <Christa Monique - Last Filed: 11/13/18 22:22> - Medical Decision Making Very well-appearing 83-year-old female. Patient states she struggles with constipation about 1-2 times a month. Patient denies any abdominal pain. She states she has rectal pressure. Patient's history of hemorrhoids. Patient uses preparation at home. Patient denies any bloody stools. She states she has had small amount of loose stools. Patient denies any nausea or vomiting. There is a positive leg stool ball palpable at the distal end of the rectum on digital rectal examination. No gross blood. Patient is tender. I did perform disimpa ction. Patient had an enema following disimpaction. putty like stool ball was excreted about 20 minutes after, no blood. Patient continues to deny any abdominal pain. Patient was given anusol suppository for discomfort. At this time given the volume of disimpaction material and stools in patient's bedside commode after enemas I feel patient is stable for discharge with use of stool softeners, miralax and prune juice outpatient. She is to return for abdominal pain and inability to have bowel movement or vomiting. Both patient and her sister who accompanied her during this visit agrees with plan of discharge with outpatient f/u. I discussed the case with Dr. Monique who is agreeable with plan of care. (Patti Alaniz) I personally saw and evaluated the patient. I reviewed the patient's chart and management. I agree with mid-level management as documented. (Christa Monique) Disposition Is patient prescribed a controlled substance at d/c from ED?: No Time of Disposition: 23:38 <Patti Alaniz - Last Filed: 11/13/18 00:39> <Christa Monique - Last Filed: 11/13/18 22:22> Clinical Impression: Constipation Disposition: HOME SELF-CARE Condition: Good Instructions (If sedation given, give patient instructions): Constipation (ED), High Fiber Diet (ED) Additional Instructions: Please use medication as discussed. Please follow-up with family doctor in the next 2 days. Please return to emergency room if the symptoms increase or worsen or for any other concerns. Prescriptions: Docusate [Colace] 100 mg PO DAILY 7 Days #7 capsule Referrals: Bertram Herndon MD [Primary Care Provider] - 1-2 days
[2018-11-12] MEDS ORDERED: MAGNESIUM HYDROXIDE 2,400 MG/10 ML CUP PO STA (20:45)
--- NOTE | 2018-11-12 21:15 | XR ---
EXAMINATION TYPE: XR KUB DATE OF EXAM: 11/12/2018 COMPARISON: NONE HISTORY: Constipation, pain TECHNIQUE: 2 supine views FINDINGS: There is excessive stool within the rectum and there is abundant stool throughout the colon. There is no bowel obstruction. No definite acute skeletal or soft tissue findings. Note: Supine radiography cannot exclude pneumoperitoneum. IMPRESSION: FINDINGS SUGGEST CONSTIPATION.
[2018-11-12] MEDS ORDERED: HYDROCORTISONE SUPPOSITORY 25 MG SUPP RECTAL STA (23:09)
[2018-11-13 00:15] VITALS: BP 136/87; PULSE 78; RESP 16; TEMP 98.1
== END 2018-11-13 00:14 | disposition home or self-care (01) ==
LOC: EC 19:02
DX: K59.00 Constipation, unspecified (principal); K64.4 Residual hemorrhoidal skin tags; K64.8 Other hemorrhoids; F02.80 Dementia in other diseases classified elsewhere, unspecified severity, without behavioral disturbance, psychotic disturbance, mood disturbance, and anxiety; G30.9 Alzheimer's disease, unspecified; M81.0 Age-related osteoporosis without current pathological fracture; Z88.0 Allergy status to penicillin; Z79.82 Long term (current) use of aspirin; Z79.899 Other long term (current) drug therapy
CPT/HCPCS: 74018; 99284

== ENCOUNTER → 2019-04-19 | Outpatient (CLI) | payer MEDICARE ==
--- NOTE | 2019-04-19 14:22 | US ---
EXAMINATION TYPE: US carotid duplex BILAT DATE OF EXAM: 04/19/2019 COMPARISON: NONE CLINICAL HISTORY: stenosis I65.22 R42 dizziness. dementia patient, no h/o stroke, dizziness EXAM MEASUREMENTS: RIGHT: Peak Systolic Velocity (PSV) cm/sec ----- Right CCA: 63.9 ----- Right ICA: 89.5 ----- Right ECA: 70.0 ICA/CCA ratio: 1.4 RIGHT: End Diastole cm/sec ----- Right CCA: 12.5 ----- Right ICA: 25.7 ----- Right ECA: 9.5 LEFT: Peak Systolic Velocity (PSV) cm/sec ----- Left CCA: 61.0 ----- Left ICA: 54.5 ----- Left ECA: 50.9 ICA/CCA ratio: 0.9 LEFT: End Diastole cm/sec ----- Left CCA: 12.5 ----- Left ICA: 19.2 ----- Left ECA: 6.3 VERTEBRALS (direction of flow): Right Vertebral: Antegrade Left Vertebral: Antegrade Rhythm: Arrhythmia Mild homogeneous plaque seen, no significant stenosis IMPRESSION: 1. Mild degree of grayscale atheromatous plaquing with no sonographically evident hemodynamically sig nificant stenosis within either visualized carotid arterial system. 2. Incidentally noted cardiac arrhythmia. Correlate with EKG. Criteria for Assigning % of Stenosis / Diameter reduction (Estimation based on the indirect measurements of the internal carotid artery velocities (ICA PSV). 1. Normal (no stenosis)=ICA PSV < 125 cm/s: ratio < 2.0: ICA EDV<40 cm/s. 2. Less than 50% stenosis=ICA PSV < 125 cm/s: ratio < 2.0: ICA EDV<40 cm/s. 3. 50 to 69% stenosis=ICA PSV of 125 to 230 cm/s: ration 2.0 ? 4.0: ICA EDV 40-100 cm/s. 4. Greater than 70% stenosis to near occlusion= ICA PSV > 230 cm/s: ratio > 4.0: ICA EDV > 100 cm/s. 5. Near occlusion= ICA PSV velocities may be low or undetectable: variable ratio and ICA EDV. 6. Total occlusion=unable to detect flow.
== END | disposition home or self-care (01) ==
LOC: RADUSWWP 10:50 → EEVIPCON 11:00
PROVIDERS: ATTEND Psychiatry & Neurology Neurology
DX: I67.2 Cerebral atherosclerosis (principal); R42 Dizziness and giddiness
CPT/HCPCS: 93880

== ENCOUNTER 2019-06-03 10:36 | Observation (INO) | payer MEDICARE ==
[2019-06-03 11:33] LABS: Basophils % (A) 0 %; Eosinophils # (A) 0.1 k/uL (0-0.7); Eosinophils % (A) 1 %; HCT 41.6 % (34.0-46.0); Lymphocytes # (A) 0.5 k/uL (1.0-4.8); Lymphocytes % (A) 4 %; MCH 31.4 pg (25.0-35.0); MCHC 33.6 g/dL (31.0-37.0); MCV 93.3 fL (80.0-100.0); Mean Platelet Volume 8.2; Monocytes # (A) 0.5 k/uL (0-1.0); Monocytes % (A) 3 %; Neutrophils % (A) 91 %; Platelet Count 236 k/uL (150-450); RBC 4.46 m/uL (3.80-5.40); RDW 13.5 % (11.5-15.5); WBC 13.1 k/uL (3.8-10.6)
[2019-06-03 11:39] LABS: Calcium 10.8 mg/dL (8.4-10.2); Magnesium 2.2 mg/dL (1.6-2.3)
[2019-06-03 11:46] LABS: Potassium 4.3 mmol/L (3.5-5.1)
[2019-06-03 11:52] LABS: INR 0.9 (<1.2)
[2019-06-03 11:56] LABS: Partial Thromboplastin Time 18.3 sec (22.0-30.0)
--- NOTE | 2019-06-03 12:05 | ED ---
General Adult HPI - General Chief complaint: Fall Stated complaint: Fall, hip pain Time Seen by Provider: 06/03/19 10:37 Source: patient, EMS, Caregiver Mode of arrival: EMS Limitations: no limitations - History of Present Illness Initial comments: Dictation was produced using [employer] dictation software. please excuse any grammatical, word or spelling errors. Chief Complaint: 84-year-old female brought in by technologist infectious disease for being found d own. History of Present Illness: 89-year-old female she is accompanied by technologist infectious disease. Patient has a history of early onset dementia. She was found lying face down at home. Is unclear how long patient was on the ground for. Patient complaining of right hip pain. She does not have any head pain or chest pain or extremity pain. The ROS documented in this emergency department record has been reviewed and confirmed by me. Those systems with pertinent positive or negative responses have been documented in the HPI. All other systems are other negative and/or noncontributory. PHYSICAL EXAM: General Impression: Alert and oriented x3, not in acute distress HEENT: Normocephalic atraumatic, extra-ocular movements intact, pupils equal and reactive to light bilaterally, mucous membranes moist, c-collar in place Cardiovascular: Heart regular rate and rhythm, S1&S2 audible, no murmurs, rubs o r gallops Chest: Lungs clear to auscultation bilaterally, no rhonchi, no wheeze, no rales Abdomen: Bowel sounds present, abdomen soft, non-tender, non-distended, no organomegaly Musculoskeletal: Pulses present and equal in all extremities, no peripheral edema, tenderness to the right hip with hip flexion. Respiratory extremities are ranged with no elicitation of pain Motor: no focal deficits noted Neurological: CN II-XII grossly intact, no focal motor or sensory deficits noted Skin: Intact with no visualized rashes Psych: Normal affect and mood ED course: 84 yo Female presents after fall. She was found on the ground this morning. All signs upon arrival are within acceptable limits. Return evaluation obtained. Leukocytosis of 13.1 likely secondary to stress. Coag panel unremarkable. Metabolic panel is unremarkable. Cardiac enzymes negative. Chest x-ray is nonacute. Computed tomography scan of the head and C- spine shows no acute processes. Computed tomography scan of the pelvis shows sacral alar fracture and pubic rami fractures. Discussed patient case with Dr. Davis's PA who requests the patient be admitted to medicine. Pending discussion with Dr. Lima. EKG interpretation: Ventricular rate 81, sinus rhythm,. 160, dry 72, QTc 436. No NC prolongation, no QTC prolongation, no ST or T-wave changes noted. EKG compared to summary 09/18/2017 showing no changes. Overall, this EKG is unremarkable - Related Data Home Medications Medication Instructions Recorded Confirmed Aspirin EC [Ecotrin Low Dose] 81 mg PO DAILY 05/24/18 06/03/19 Calcium Carbonate/Vitamin D3 1 tab PO BID 05/24/18 06/03/19 [Calcium 600-Vit D3 400 Caplet] Cyanocobalamin (Vitamin B-12) 1,000 mcg PO DAILY 05/24/18 06/03/19 [Vitamin B-12] Dorzolamide-Timol 2.23%/0.68% 1 drop BOTH EYES BID 05/24/18 06/03/19 [Cosopt] Latanoprost/Pf [Latanoprost 0.005% 1 drop BOTH EYES HS 05/24/18 06/03/19 Eye Drop] Multivit-Min/Iron/Folic/Lutein 1 tab PO DAILY 05/24/18 06/03/19 [Centrum Silver Women Tablet] Prevagen (Memory Vitamin) 1 tab PO HS 05/24/18 06/03/19 Cod Liver Oil 1 cap PO BID 06/03/19 06/03/19 Melatonin 3 mg PO HS 06/03/19 06/03/19 Valsartan 40 mg PO HS 06/03/19 06/03/19 Allergies Allergy/AdvReac Type Severity Reaction Status Date / Time Penicillins Allergy Unknown Verified 06/03/19 11:39 Review of Systems ROS Statement: Those systems with pertinent positive or pertinent negative responses have been documented in the HPI. ROS Other: All systems not noted in ROS Statement are negative. Past Medical History Past Medical History: Dementia, Thyroid Disorder Additional Past Medical History / Comment(s): osteoporosis, foot neuropathy, History of Any Multi-Drug Resistant Organisms: None Reported Additional Past Surgical History / Comment(s): cataract,thryroidectomy Past Psychological History: No Psychological Hx Reported Smoking Status: Never smoker Past Alcohol Use History: Occasional Past Drug Use History: None Reported General Exam Limitations: no limitations Course Vital Signs 06/03/19 06/03/19 10:38 12:21 Temperature 97.6 F Pulse Rate 75 71 Respiratory 18 17 Rate Blood Pressure 119/66 136/71 O2 Sat by Pulse 97 98 Oximetry Medical Decision Making - Lab Data Result diagrams: 06/03/19 11:16 06/03/19 11:16 Lab Results 06/03/19 06/03/19 06/03/19 Range/Units 11:16 11:16 11:16 WBC 13.1 H (3.8-10.6) k/uL RBC 4.46 (3.80-5.40) m/uL Hgb 14.0 (11.4-16.0) gm/dL Hct 41.6 (34.0-46.0) % MCV 93.3 (80.0-100.0) fL MCH 31.4 (25.0-35.0) pg MCHC 33.6 (31.0-37.0) g/dL RDW 13.5 (11.5-15.5) % Plt Count 236 (150-450) k/uL Neutrophils % 91 % Lymphocytes % 4 % Monocytes % 3 % Eosinophils % 1 % Basophils % 0 % Neutrophils # 12.0 H (1.3-7.7) k/uL Lymphocytes # 0.5 L (1.0-4.8) k/uL Monocytes # 0.5 (0-1.0) k/uL Eosinophils # 0.1 (0-0.7) k/uL Basophils # 0.0 (0-0.2) k/uL PT (9.0-12.0) sec INR (<1.2) APTT (22.0-30.0) sec Sodium 138 (137-145) mmol/L Potassium 4.3 (3.5-5.1) mmol/L Chloride 104 (98-107) mmol/L Carbon Dioxide 24 (22-30) mmol/L Anion Gap 10 mmol/L BUN 18 H (7-17) mg/dL Creatinine 0.98 (0.52-1.04) mg/dL Est GFR (CKD-EPI)AfAm 62 (>60 ml/min/1.73 sqM) Est GFR (CKD-EPI)NonAf 54 (>60 ml/min/1.73 sqM) Glucose 132 H (74-99) mg/dL Plasma Lactic Acid Guy 1.6 (0.7-2.0) mmol/L Calcium 10.8 H (8.4-10.2) mg/dL Magnesium 2.2 (1.6-2.3) mg/dL Creatine Kinase 73 (30-135) U/L Troponin I (0.000-0.034) ng/mL 06/03/19 06/03/19 Range/Units 11:16 11:16 WBC (3.8-10.6) k/uL RBC (3.80-5.40) m/uL Hgb (11.4-16.0) gm/dL Hct (34.0-46.0) % MCV (80.0-100.0) fL MCH (25.0-35.0) pg MCHC (31.0-37.0) g/dL RDW (11.5-15.5) % Plt Count (150-450) k/uL Neutrophils % % Lymphocytes % % Monocytes % % Eosinophils % % Basophils % % Neutrophils # (1.3-7.7) k/uL Lymphocytes # (1.0-4.8) k/uL Monocytes # (0-1.0) k/uL Eosinophils # (0-0.7) k/uL Basophils # (0-0.2) k/uL PT 10.0 (9.0-12.0) sec INR 0.9 (<1.2) APTT 18.3 L (22.0-30.0) sec Sodium (137-145) mmol/L Potassium (3.5-5.1) mmol/L Chloride (98-107) mmol/L Carbon Dioxide (22-30) mmol/L Anion Gap mmol/L BUN (7-17) mg/dL Creatinine (0.52-1.04) mg/dL Est GFR (CKD-EPI)AfAm (>60 ml/min/1.73 sqM) Est GFR (CKD-EPI)NonAf (>60 ml/min/1.73 sqM) Glucose (74-99) mg/dL Plasma Lactic Acid Guy (0.7-2.0) mmol/L Calcium (8.4-10.2) mg/dL Magnesium (1.6-2.3) mg/dL Creatine Kinase (30-135) U/L Troponin I <0.012 (0.000-0.034) ng/mL Disposition Clinical Impression: Fall, Pelvic fracture Disposition: ADMITTED IP TO THIS HOSP Condition: Fair Referrals: Bertram Herndon MD [Primary Care Provider] - 1-2 days Decision Time: 13:35
--- NOTE | 2019-06-03 12:07 | CT ---
EXAMINATION TYPE: CT brain j luis carballo con DATE OF EXAM: 06/03/2019 COMPARISON: None HISTORY: fall CT DLP: 1194 mGycm, Automated exposure control for dose reduction was used. CONTRAST: Patient injected with 0 mL of Isovue 300. CT of the brain is performed utilizing 3 mm thick sections through the posterior fossa and 3 mm thick sections through the remaining calvarium. Study is performed within 24 hours of arrival to the hospital. No abnormal hyperdensity is present to suggest an acute intracranial hemorrhage. No mass lesion is evident. No acute infarcts are evident. Periventricular patchy white matter hypodensity is present, likely on the basis of chronic white matter ischemic changes. Ventricles and sulci are prominent for the patient age. There is an air-fluid level within the posterior left frontal sinus. Remaining paranasal sinuses and mastoid air cells within the [id number] are clear. Some mild hyperostosis frontalis internus may b e present. IMPRESSIONS: 1. Atrophy with periventricular white matter ischemic type changes. CT cervical spine. COMPARISON: None CT of the cervical spine is performed in the axial plane at 2 mm thick sections. Reconstructed image s in the coronal, and sagittal plane are reviewed on the computer. No acute fractures are evident. There may be some kyphosis within the upper thoracic spine. Loss of disc height is noted C5-6 C6-7. V ertebral body heights are preserved. Uncovertebral joint hypertrophy is noted with some mild to moder ate foraminal narrowing lower cervical spine, greater on the right No spinal canal stenosis is evident. IMPRESSIONS: 1. No acute osseous abnormality cervical spine. 2. Degenerative disc changes. 3. Chronic uncovertebral joint hypertrophy contributing to foraminal narrowing within the mid to lowe r cervical spine, greater on the right.
--- NOTE | 2019-06-03 12:44 | XR ---
EXAMINATION TYPE: XR chest 1V portable DATE OF EXAM: 06/03/2019 Comparison: 05/24/2018 Clinical History: 84-year-old female with fall and pain Findings: Heart limits of normal in size. Atherosclerotic arch calcifications. Relative upper lung lucencies wi th mild interstitial prominence. Focal opacity at the right lower lung appears larger from prior. Impression: Suspect underlying COPD. Chronic parenchymal changes. Focal opacity at the right lower lung appears l arger from prior. Recurrent pneumonia or underlying mass are differential considerations.
--- NOTE | 2019-06-03 12:48 | XR ---
EXAMINATION TYPE: XR pelvis AP view, XR Hip Complete 2 views RT DATE OF EXAM: 06/03/2019 COMPARISON: NONE HISTORY: 84-year-old female with hip pain after fall FINDINGS: AP view of the pelvis shows degenerative changes in the lower lumbar spine. There is irregularity of the right arcuate lines of the sacrum. There is mildly displaced fractures of the right superior and inferior pubic rami also demonstrated. SI joints appear intact. Mild marginal spurring of both hips. There is osteopenia without any displaced proximal femoral fract ure identified. IMPRESSION: 1. Right sacral alar fracture. 2. Mildly displaced fractures of the right superior and inferior pubic rami. 3. Osteopenia without any displaced proximal femoral fracture.
[2019-06-03] MEDS ORDERED: HYDROcodone/APAP 5-325MG 1 EACH TAB PO PRN (13:35)
[2019-06-03] MEDS ORDERED: MORPHINE SULFATE 4 MG/ML SYRINGE IV PRN (13:35)
[2019-06-03] MEDS ORDERED: NALOXONE 0.4 MG/ML 1 ML VIAL IV PRN (13:35)
[2019-06-03] MEDS: SODIUM CHLORIDE 0.9% 1,000 ML IV SCH (15:22)
[2019-06-03] MEDS: ACETAMINOPHEN TAB 325 MG TAB PO PRN ×2 (15:22→21:26)
[2019-06-03] MEDS: LATANOPROST 0.005% OPHTH DROPS 2.5 ML BTL BOTH EYES SCH (21:27)
[2019-06-03] MEDS: DORZOLAMIDE-TIMOLOL 2.23%/0.68 10ML BTL BOTH EYES SCH (21:27)
[2019-06-03] MEDS: VALSARTAN 40 MG TAB PO SCH (21:27)
[2019-06-03 22:29] LABS: Appearance,Urine Clear (Clear); Bilirubin,Urine Negative (Negative); Blood,Urine Negative (Negative); Color,Urine Yellow; Glucose,Urine (UA) Negative (Negative); Ketones,Urine Trace (Negative); Leukocyte Esterase,Urine Negative (Negative); Nitrite,Urine Negative (Negative); PH, Urine 6.5 (5.0-8.0); Protein,Urine Negative (Negative); Specific Gravity,Urine 1.017 (1.001-1.035); Urobilinogen,Urine <2.0 mg/dL (<2.0)
[2019-06-04] MEDS: CALCIUM CARB-VIT D 500MG-200UN 1 EACH TAB PO SCH ×2 (10:05→21:27)
[2019-06-04] MEDS: AZITHROMYCIN 500 MG TAB PO SCH (10:06)
[2019-06-04] MEDS: MULTIVITAMINS, THERA 1 EACH TAB PO SCH (10:06)
[2019-06-04] MEDS: DORZOLAMIDE-TIMOLOL 2.23%/0.68 10ML BTL BOTH EYES SCH ×2 (10:06→21:27)
[2019-06-04] MEDS: ASPIRIN 81 MG PO SCH (10:06)
[2019-06-04] MEDS: CYANOCOBALAMIN 500 MCG TAB PO SCH (10:06)
--- NOTE | 2019-06-04 14:18 | P.CNOR ---
History of Present Illness - [facility] Consult date: 06/04/19 Consult reason: fracture History of present illness: Patient is an 84 yo female seen at bedside this am in consultation regarding her right pubic ramii fractures and sacral ala fracture. She was admitted through [facility] ED yesterday 06/03/2019 after suffering a fall at home. She has pain at the right groin as expected with ROM and activity. She has no pain at rest. She denies further lower extremity injury or pain. She denies numbness, tingling or calf pain. Review of Systems All systems: negative Constitutional: Denies chills, Denies fever Eyes: denies blurred vision, denies pain Ears, nose, mouth and throat: Denies headache, Denies sore throat Cardiovascular: Denies chest pain, Denies shortness of breath Respiratory: Denies cough Gastrointestinal: Denies abdominal pain, Denies diarrhea, Denies nausea, Denies vomiting Genitourinary: Denies dysuria, Denies hematuria Musculoskeletal: Denies myalgias Integumentary: Denies pruritus, Denies rash Neurological: Denies numbness, Denies weakness Psychiatric: Denies anxiety, Denies depression Endocrine: Denies fatigue, Denies weight change Past Medical History Past Medical History: Dementia, Hypertension, Pneumonia, Thyroid Disorder Additional Past Medical History / Comment(s): Recent stool impaction, chronic demyelination bilateral legs/feet, neuropathy bilateral feet, osteoporosis, bilateral glaucoma-low tension, intermittent vertigo past year. History of Any Multi-Drug Resistant Organisms: None Reported Additional Past Surgical History / Comment(s): Partial thyroidectomy, bilateral cataract removals. Past Anesthesia/Blood Transfusion Reactions: No Reported Reaction Smoking Status: Never smoker - Past Family History Father Family Medical History: Diabetes Mellitus, Respiratory Disorder Mother Family Medical History: Myocardial Infarction (CT) Additional Family Medical History / Comment(s): Mother had a CT preior to age 50 yrs, detached retina, tic del a mack. Medications and Allergies Home Medications Medication Instructions Recorded Confirmed Type Aspirin EC [Ecotrin Low Dose] 81 mg PO DAILY 05/24/18 06/03/19 History Calcium Carbonate/Vitamin D3 1 tab PO BID 05/24/18 06/03/19 History [Calcium 600-Vit D3 400 Caplet] Cyanocobalamin (Vitamin B-12) 1,000 mcg PO DAILY 05/24/18 06/03/19 History [Vitamin B-12] Dorzolamide-Timol 2.23%/0.68% 1 drop BOTH EYES BID 05/24/18 06/03/19 History [Cosopt] Latanoprost/Pf [Latanoprost 0.005% 1 drop BOTH EYES HS 05/24/18 06/03/19 History Eye Drop] Multivit-Min/Iron/Folic/Lutein 1 tab PO DAILY 05/24/18 06/03/19 History [Centrum Silver Women Tablet] Prevagen (Memory Vitamin) 1 tab PO HS 05/24/18 06/03/19 History Cod Liver Oil 1 cap PO BID 06/03/19 06/03/19 History Melatonin 3 mg PO HS 06/03/19 06/03/19 History Valsartan 40 mg PO HS 06/03/19 06/03/19 History Allergies Allergy/AdvReac Type Severity Reaction Status Date / Time Penicillins Allergy Unknown Verified 06/03/19 11:39 Physical Examination Inspection of the hips and lower extremities is benign. There are no wounds or deformity. She has pain with passive ROM of the right hip. No pain with ROM of left hip, knees ankles and feet. Motor and sensation is intact throughout bilateral lower extremities. Calves are SNT. Adequate perfusion distally. . Results Xrays of pelvis show mild displaced fractures of the superior and inferior right pubic ramii as well as sacral ala. - Labs Labs: Abnormal Lab Results - Last 24 Hours (Table) 06/03/19 Range/Units 21:15 Urine Ketones Trace H (Negative) H & H 06/03/19 Range/Units 11:16 Hgb 14.0 (11.4-16.0) gm/dL Hct 41.6 (34.0-46.0) % Coagulation 06/03/19 Range/Units 11:16 INR 0.9 (<1.2) Result Diagrams: 06/03/19 11:16 06/03/19 11:16 Assessment and Plan (1) Pelvic fracture Narrative/Plan: There are no plans for surgical intervention. She may be protected weightbearing with walker as tolerated with PT. Continue pain management, medical management and DVT prophylaxis. Current Visit: Yes Status: Acute Priority: Medium Code(s): S32.9XXA - FRACTURE OF UNSP PARTS OF LUMBOSACRAL SPINE AND PELVIS, INIT SNOMED Code(s): 65517727 Time with Patient: Less than 30
[2019-06-04] MEDS: SODIUM CHLORIDE 0.9% 1,000 ML IV SCH (14:45)
--- NOTE | 2019-06-04 14:52 | P.HPIM ---
History of Present Illness H&P Date: 06/04/19 Chief Complaint: Fall This is an 84-year-old female patient of Dr. Herndon with past medical history of dementia, neuropathy, glaucoma, vertigo, osteoporosis, hypertension, hypothyroidism status post partial thyroidectomy. The patient was found lying face down on the floor at home. She resides at [facility] and sister along with 4 hired caregivers take care of her at home. Patient was then complaining of right hip pain and was brought into [facility] emergency [facility] for evaluation. X-rays of the pelvis showed mild displaced fractures of the superior inferior right pubic rami as well as sacral alar fracture, osteopenia. Chest x-ray suspected COPD with chronic parenchymal changes. Focal opacities at the right lower lung appears larger from prior. Recurrent pneumonia or underlying masses are differential consid erations. CAT scan of the brain and cervical spine negative for acute findings. Patient admitted to the [facility] floor and consult obtained with orthopedics with plan for conservative management. Review of Systems ROS unobtainable: due to mental status Constitutional: Denies chills, Denies fatigue, Denies fever, Denies poor appetite Ears, nose, mouth and throat: Denies headache Cardiovascular: Denies chest pain, Denies shortness of breath Gastrointestinal: Denies abdominal pain, Denies diarrhea, Denies nausea, Denies vomiting Musculoskeletal: Reports gait dysfunction, Reports muscle weakness Integumentary: Denies pruritus, Denies rash Neurological: Reports gait dysfunction, Denies change in mentation, Denies numbness, Denies weakness Psychiatric: Denies anxiety, Denies depression Endocrine: Denies fatigue, Denies weight change Past Medical History Past Medical History: Dementia, Hypertension, Pneumonia, Thyroid Disorder Additional Past Medical History / Comment(s): Recent stool impaction, chronic demyelination bilateral legs/feet, neuropathy bilateral feet, osteoporosis, bilateral glaucoma-low tension, intermittent vertigo past year. History of Any Multi-Drug Resistant Organisms: None Reported Additional Past Surgical History / Comment(s): Partial thyroidectomy, bilateral cataract removals. Past Anesthesia/Blood Transfusion Reactions: No Reported Reaction Smoking Status: Never smoker Additional Past Alcohol Use History / Comment(s): Patient was a smoker of one half pack per day and quit many years ago. No illicit drug use, marijuana use or alcohol use. Patient currently lives alone at [facility] has a siste r and 4 caregivers that take care of her. - Past Family History Father Family Medical History: Diabetes Mellitus, Respiratory Disorder Additional Family Medical History / Comment(s): Mother and father are both and patient does not remember what happened to them. Patient has one brother unknown if patient's brother is alive. Patient is one sister Priscilla that is alive and assist in patient's care. Mother Family Medical History: Myocardial Infarction (HI) Additional Family Medical History / Comment(s): Mother had a HI preior to age 50 yrs, detached retina, tic del a mack. Medications and Allergies Home Medications Medication Instructions Recorded Confirmed Type Aspirin EC [Ecotrin Low Dose] 81 mg PO DAILY 05/24/18 06/03/19 History Calcium Carbonate/Vitamin D3 1 tab PO BID 05/24/18 06/03/19 History [Calcium 600-Vit D3 400 Caplet] Cyanocobalamin (Vitamin B-12) 1,000 mcg PO DAILY 05/24/18 06/03/19 History [Vitamin B-12] Dorzolamide-Timol 2.23%/0.68% 1 drop BOTH EYES BID 05/24/18 06/03/19 History [Cosopt] Latanoprost/Pf [Latanoprost 0.005% 1 drop BOTH EYES HS 05/24/18 06/03/19 History Eye Drop] Multivit-Min/Iron/Folic/Lutein 1 tab PO DAILY 05/24/18 06/03/19 History [Centrum Silver Women Tablet] Prevagen (Memory Vitamin) 1 tab PO HS 05/24/18 06/03/19 History Cod Liver Oil 1 cap PO BID 06/03/19 06/03/19 History Melatonin 3 mg PO HS 06/03/19 06/03/19 History Valsartan 40 mg PO HS 06/03/19 06/03/19 History Allergies Allergy/AdvReac Type Severity Reaction Status Date / Time Penicillins Allergy Unknown Verified 06/03/19 11:39 Physical Exam Vitals: Vital Signs Temp Pulse Pulse Resp BP BP Pulse Ox 06/04/19 00:30 98.1 F 84 14 128/71 92 L 06/03/19 18:51 98.0 F 87 24 130/74 92 L 06/03/19 15:47 97.9 F 79 15 136/86 92 L 06/03/19 14:35 97.4 F L 80 16 143/86 96 06/03/19 12:21 71 17 136/71 98 06/03/19 10:38 97.6 F 75 18 119/66 97 Intake and Output 06/03/19 06/04/19 06/04/19 22:59 06:59 14:59 Intake Total 145 Output Total 650 Balance 145 -650 Intake: Oral 145 Output: Urine 650 Other: Voiding Method Indwelling Catheter Gen: This is an 84-year-old female HEENT: Head is atraumatic, normocephalic. Pupils equal, round. Sclerae is anicteric. NECK: Supple. No JVD. No lymphadenopathy. No thyromegaly. LUNGS: Clear to auscultation. No wheezes or rhonchi. No egophony. No intercostal retractions. HEART: Regular rate and rhythm. No murmur. ABDOMEN: Soft. Bowel sounds are present. No masses. No tenderness. Tenderness in the right groin EXTREMITIES: No pedal edema. Dorsalis pedis and posterior tibial pulses are strong bilaterally. No calf tenderness. Bilateral hammertoes NEUROLOGICAL: Patient is awake, alert and oriented to person. Mild generalized weakness. No focal neural deficits. Results CBC & Chem 7: 06/03/19 11:16 06/03/19 11:16 Labs: Abnormal Lab Results - Last 24 Hours (Table) 06/03/19 06/03/19 06/03/19 Range/Units 11:16 11:16 11:16 WBC 13.1 H (3.8-10.6) k/uL Neutrophils # 12.0 H (1.3-7.7) k/uL Lymphocytes # 0.5 L (1.0-4.8) k/uL APTT 18.3 L (22.0-30.0) sec BUN 18 H (7-17) mg/dL Glucose 132 H (74-99) mg/dL Calcium 10.8 H (8.4-10.2) mg/dL Urine Ketones (Negative) 06/03/19 Range/Units 21:15 WBC (3.8-10.6) k/uL Neutrophils # (1.3-7.7) k/uL Lymphocytes # (1.0-4.8) k/uL APTT (22.0-30.0) sec BUN (7-17) mg/dL Glucose (74-99) mg/dL Calcium (8.4-10.2) mg/dL Urine Ketones Trace H (Negative) Thrombosis Risk Factor Assmnt - DVT/VTE Prophylaxis DVT/VTE Prophylaxis: Pharmacologic Prophylaxis ordered - Choose All That Apply Any of the Below Risk Factors Present?: Yes Each Factor Represents 1 point: Medical pt on bed rest Other Risk Factors: Yes Each Risk Factor Represents 2 Points: Patient confined to bed Each Risk Factor Represents 3 Points: Age 75 years or older Other congenital or acquired thrombophilia - If yes, enter type in comment: No Each Risk Factor Represents 5 Points: Hip, pelvis, or leg fracture (< 1 month) Thrombosis Risk Factor Assessment Total Risk Factor Score: 11 Thrombosis Risk Factor Assessment Level: High Risk Assessment and Plan Plan: 1. Mildly displaced fractures of this. Her inferior right pubic rami as well as sacral allar. Orthopedic consult appreciated. No plans for surgical intervention. Patient is protected weightbearing with walker as tolerated with physical therapy. Continue Tylenol only for pain control. 2. Possible pneumonia not completely ruled out. Continue Rocephin and azithromycin. Consult with Dr. Alegria. 3. Hypertension. Continue valsartan 40 mg at bedtime. 4. Glaucoma. Continue eye drops. 5. Osteopenia. 6. Dementia, stable. 7. DVT prophylaxis. Lovenox. 8. GI prophylaxis. Pepcid. Patient will be admitted to the hospital for a minimum of 2 night stay. Discharge plan: Most likely subacute rehab at [facility] on Thursday Impression and plan of care have been directed as dictated by the signing physician. Gaby Astorga nurse practitioner acting as scribe for signing ph ysician.
[2019-06-04] MEDS: ACETAMINOPHEN TAB 325 MG TAB PO PRN (14:53)
[2019-06-04] MEDS ORDERED: RX INFO: IV CONTRAST WAS GIVEN 1 EACH MISC MISCELLANE PRN (15:13)
--- NOTE | 2019-06-04 16:37 | CT ---
EXAMINATION TYPE: CT chest w con DATE OF EXAM: 06/04/2019 COMPARISON: Radiograph 06/03/2019 HISTORY: 84-year-old female with chest mass TECHNIQUE: Contiguous axial scanning of the chest after the administration of 80cc mL of Isovue 300. Coronal/sagittal reconstructions performed. CT DLP: 265.9mGycm. Automatic exposure control utilized for a dose reduction. FINDINGS: Heart upper limits of normal in size without pericardial effusion. Three-vessel coronary artery calci fications are present. Aorta normal caliber with mild arch calcifications and conventional arch vessel branching anatomy. Calcified mediastinal lymph nodes suggest prior granulomatous disease. No thoracic lymphadenopathy by CT size criteria. Large caliber to the main right and left pulmonary arteries measuring up to 2.8 cm suggesting underly ing pulmonary arterial hypertension. Interstitial thickening is present throughout the subpleural region of the upper lungs and throughout the mid and lower lungs. Some scattered calcifications compatible with prior granulomatous disease. Mild centrilobular emphysema is also present. On the right, there is a ovoid, masslike area of opacity along the minor fissure measuring 4.6 cm wid e by 1.9 cm craniocaudal by 2.2 cm AP. There is breathing motion which limits accurate attenuation me asurements. One measurement suggests low density and a second measurement suggests soft tissue densit y. An additional adjacent patchy right lower lobe peripherally located density may be fat density. Lipoi d pneumonia is a possibility. Irregular confluent opacity left lower lobe extends from the infrahilar region to the periphery measu ring up to 3.4 cm grade caudal by 2.2 cm wide by 1.5 cm AP. Additional bandlike scarring or atelectas is is present at the base. No pleural effusion. Multiple hepatic cysts measuring up to 2.6 cm. Small hiatal hernia. Moderate stool burden. Bones: Dextroconvex scoliosis and degenerative changes of the shoulders. Osteopenia. IMPRESSION: 1. Interstitial fibrosis, extensive scattered scarring, and prior granulomatous disease. 2. [place] masslike opacity along the right minor fissure measures 4.6 x 2.2 x 1.9 cm. Breathing motio n limits accurate density measurement. One measurement suggests fluid and one measurement suggests so ft tissue density. Pseudotumor with fluid trapped in the minor fissure is possible. 3 month follow-up CT recommended to reassess and exclude neoplasm. 3. Additional irregular opacity left lower lobe measures 3.4 x 2.2 x 1.5 cm. This should also be reas sessed at follow-up to exclude neoplasm. Pneumonia or confluent scarring are possible. Clinically cor relate. 4. COPD with mild emphysema, pulmonary arterial hypertension, and CAD.
--- NOTE | 2019-06-04 17:30 | CONS ---
CONSULTATION 84-year-old female who apparently was seen in the emergency room. She was brought in by EMS. She apparently was found on the floor by her patent paralegal. The patient has a history of early-onset dementia. She was apparently found lying face down at home. It is not clear how long the patient was down on the ground. She was complaining of right hip pain. She denied any head pain or chest pain or extremity pain. She denies all pulmonary complaints. She denies any shortness of breath, chest tightness, wheezing, cough or phlegm production. There is no fever or chills. There is no nausea, vomiting, diarrhea. No genitourinary complaints. I was consulted for the possibility of pneumonia seen on the chest x-ray. Again, she lacks all pulmonary complaints at this time. She looks very comfortable. Not on any supplemental oxygen. HOME MEDICATIONS: Reviewed. They include aspirin, calcium carbonate with vitamin D, vitamin B12, eye drops, multivitamins, Prevagen, cod liver oil, melatonin, and valsartan. ALLERGIES: PENICILLIN. PAST MEDICAL HISTORY: Includes primarily dementia, hypertension, and apparently thyroid disease, although she is not on any thyroid medication. She also apparently suffers from osteoporosis and foot neuropathy. SURGICAL HISTORY: Includes a cataract surgery and thyroidectomy. SOCIAL HISTORY: Significant that she is a lifelong nonsmoker. Occasional alcohol use. No illicit drug use. Not much can be gleaned from her about her family history. Because of her dementia, she does not remember whether or not her parents had any significant medical history. REVIEW OF SYSTEMS: Likewise, review of systems is unreliable. CONSTITUTIONAL: Negative. NEUROLOGIC: Negative. HEENT: Negative. CARDIOVASCULAR: Negative. PULMONARY: Negative. GI: Negative. : Negative. RHEUMATOLOGIC: Right hip pain. IMMUNOLOGIC: Negative. ENDOCRINOLOGIC: Negative. DERMATOLOGIC: Negative. PHYSICAL EXAMINATION: Current vital signs are reviewed. Temperature is 98.1, heart rate 88, respiratory rate 14, blood pressure 132/60, mean 84, room air saturation 95%. She appears in no acute distress. HEENT examination is grossly unremarkable. Mucous membranes are moist. No supplemental oxygen. NECK: Supple. Full range of motion. No adenopathy or thyromegaly. Neck veins are flat. CARDIOVASCULAR examination reveals regular rhythm and rate. Heart rate 88. S1, S2 normal. There is no murmur. LUNGS: Reveal clear breath sounds. No wheezes, rhonchi, or crackles. Breath sounds equal bilaterally. ABDOMEN: Soft. Bowel sounds are heard. EXTREMITIES are intact. No cyanosis, clubbing, or edema. SKIN: Without rash. NEUROLOGIC: Examination is difficult to assess. Her dementia limits how much history we could obtain from her. She does move all 4 extremities well. LABS: Reviewed. White count 13.1, hemoglobin 14, hematocrit 41.6, platelet count 336,000. PT/INR normal. PTT 18.3. Sodium, potassium, chloride, CO2 all normal. Anion gap is normal. BUN and creatinine were 18 and 0.98. Glucose 132, calcium 10.8. CK is 73. Urine was negative. The patient had a cervical spine CT. It showed atrophy with periventricular white matter ischemic type changes. CT of the cervical spine shows no acute abnormality. Chest x-ray shows some chronic parenchymal changes, with a possible focal opacity at the right lower lobe. This could represent pneumonia or an underlying mass. Hip and pelvic x-rays show a right sacral alar fracture. There is mildly displaced fracture of the right superior and inferior pubic rami. There is evidence of osteopenia. Medications are reviewed. From the pulmonary standpoint, the patient is on Zithromax and ceftriaxone. I do not believe the patient would benefit from these antibiotics at this time. Certainly if I was going to give her any antibiotics, I would just give her Zithromax orally for a few days. I will DC the ceftriaxone. ASSESSMENT: 1. Mass/infiltrate, right lower lobe, in a patient who is completely asymptomatic and devoid of any symptoms or signs of pneumonia. 2. Right pelvic fracture secondary to a fall. 3. History of dementia. 4. History of thyroid disorder. 5. Osteoporosis. 6. Neuropathy. 7. Lifelong nontobacco use. PLAN: I will go ahead and order a CT scan of the chest with contrast. This will give us more information about what might be a mass versus infiltrate in the right mid lung. I will DC the ceftriaxone. Additional suggestions and recommendations are forthcoming. We will continue to follow. Prognosis is guarded. MMODL / IJN: [id number] /
[2019-06-04] MEDS: VALSARTAN 40 MG TAB PO SCH (21:27)
[2019-06-04] MEDS: MELATONIN 3 MG TABLET PO SCH (21:27)
[2019-06-04] MEDS: LATANOPROST 0.005% OPHTH DROPS 2.5 ML BTL BOTH EYES SCH (21:27)
[2019-06-04] MEDS: BISACODYL 5 MG TABLET.DR PO PRN (21:28)
[2019-06-05] MEDS: ENOXAPARIN 40 MG/0.4 ML SYRINGE SQ SCH (09:00)
[2019-06-05] MEDS: CALCIUM CARB-VIT D 500MG-200UN 1 EACH TAB PO SCH ×2 (09:01→20:35)
[2019-06-05] MEDS: CYANOCOBALAMIN 500 MCG TAB PO SCH (09:01)
[2019-06-05] MEDS: ACETAMINOPHEN TAB 325 MG TAB PO PRN ×2 (09:01→16:33)
[2019-06-05] MEDS: FAMOTIDINE 20 MG TAB PO SCH (09:01)
[2019-06-05] MEDS: DORZOLAMIDE-TIMOLOL 2.23%/0.68 10ML BTL BOTH EYES SCH ×2 (09:02→20:35)
[2019-06-05] MEDS: ASPIRIN 81 MG PO SCH (09:02)
[2019-06-05] MEDS: MULTIVITAMINS, THERA 1 EACH TAB PO SCH (09:02)
--- NOTE | 2019-06-05 09:50 | XR ---
EXAMINATION TYPE: XR cervical spine 3 views limited, XR shoulder limited RT XR pelvis AP view DATE OF EXAM: 06/05/2019 COMPARISON: Pelvis 06/03/[address] chest 06/04/2019 HISTORY: 84-year-old female with fall and pain FINDINGS: Cervical spine: Crosstable lateral view shows no predental space widening or prevertebral soft tissue swelling. Moderate disposition. Degenerative change lower cervical spine. There seems to be a dextro convex scoliosis lower down. Scattered facet and uncovertebral joint arthropathy. C6-C7 and below is obscured by the patient's shoulders and not assessed. Remaining alignment is maintained. Normal odont oid view. Right shoulder: Underlying degenerative change at the glenohumeral joint. Subacromial space is prese rved. AC joint appears congruent. No acute fracture, subluxation, dislocation seen. Focal right midlu ng opacity. Some scattered calcified granulomas. Pelvis: Levoconvex scoliosis of the lumbar spine. Extensive bowel content with stool distending the rectum up to 8.9 cm wide. Views of the femoral necks and proximal femurs are very limited due to posi tioning, partial inclusion on the images, and external rotation at the hips during image acquisition. There is marked osteopenia as well further limiting the evaluation. Known right sacroiliac fracture and fractures of the right superior and inferior pubic rami. IMPRESSION: 1. Cervical spine: The C6-C7 level and below is obscured by the patient's shoulders and not assessed. Remaining alignment is maintained. Moderate degenerative change mid to lower cervical spine. 2. Right shoulder: Glenohumeral joint OA. 2 views without acute osseous abnormality seen. Known massl juan pablo density right midlung. Prior granulomatous disease. 3. Pelvis: S-shaped scoliosis. Marked osteopenia. Known fractures of the right sacral ala and right s uperior/inferior pubic rami. Limited assessment of the proximal femurs due to patient positioning and partial inclusion on the acquired images. When patient able, consider high quality views of the pelv is/hips with appropriate internal rotation and centering. No obvious new displaced fractures on these images. Correlate to exclude fecal impaction.
[2019-06-05] MEDS: BISACODYL 5 MG TABLET.DR PO PRN (11:40)
--- NOTE | 2019-06-05 11:40 | P.PN ---
Subjective Progress Note Date: 06/05/19 Principal diagnosis: Right pubic ramii fractures, sacral ala fracture Patient is an 84 yo female seen at bedside this am. We are following her regarding her right pubic ramii fractures and sacral ala fracture. She apparently got up on her own in the middle of the night and fell again. She is complaining of neck pain and right shoulder pain. Xrays of the cervical spine and right shoulder are ordered. She has no complaints of upper extremity radicular symptoms including numbness or tingling. She continues to have pain in right pelvic area with ROM and is unchanged. She has no pain at rest. She denies new lower extremity complaints including numbness, tingling or pain. She denies calf pain, fever, chills, chest pain or shortness of breath. Objective - Vital Signs Vital signs: Vital Signs Temp 98.2 F 06/05/19 07:00 Pulse 92 06/05/19 07:00 Resp 17 06/05/19 07:00 BP 125/80 06/05/19 07:00 Pulse Ox 92 L 06/05/19 07:00 Intake & Output 06/04/19 06/05/19 06/05/19 18:59 06:59 18:59 Intake Total 742 316 Output Total 900 Balance 742 -584 Intake: Intake, IV Titration 150 Amount Sodium Chloride 0.9% 1, 100 000 ml @ 20 mls/hr IV . Q24H SAMINA Rx#:[id number] cefTRIAXone 1 gm In 50 Sodium Chloride 0.9% 50 ml @ 100 mls/hr IVPB Q24HR SAMINA Rx#:[id number] Oral 592 316 Output: Urine 900 Other: Voiding Method Indwelling Catheter Indwelling Catheter - Exam Inspection of cevical spine is benign with no wounds, stepoff or deformity. The right shoulder is located with no sign of deformity or wounds. There is mild pain with passive ROM. Upper extremity motor and sensation is intact C5-T1 bilaterally. Lower extremities show no signs of injury. She has pain with passive ROM of right hip as expected. Motor and sensation is intact L2-S1 bilaterally. Calves are SNT and there is adequate perfusion distally bilaterally. - Constitutional General appearance: Present: no acute distress - Labs CBC & Chem 7: 06/03/19 11:16 06/03/19 11:16 Labs: Abnormal Lab Results - Last 24 Hours (Table) 06/04/19 Range/Units 15:17 Procalcitonin 0.13 H (0.02-0.09) ng/mL Assessment and Plan (1) Pelvic fracture Narrative/Plan: Xrays of the cervical spine, right shoulder have been ordered. There will be repeat xrays of the pelvis ordered due to recurrent fall to assess for new inju ry or further displacement. Should her xrays be negative for new or acute injury, she may continue to be protected weightbearing with walker as tolerated with PT or assist. She may also be transferred to [facility] from orthopedic standpoint should her xrays be negative. Continue pain management, medical management and DVT prophylaxis. Current Visit: Yes Status: Acute Priority: Medium Code(s): S32.9XXA - FRACTURE OF UNSP PARTS OF LUMBOSACRAL SPINE AND PELVIS, INIT SNOMED Code(s): 61632695 Time with Patient: Less than 30
--- NOTE | 2019-06-05 12:39 | P.PN ---
Subjective Progress Note Date: 06/05/19 Principal diagnosis: Interstitial fibrosis with extensive scattered scarring and prior granulomatous disease. Pseudotumor the right middle lobe opacities in the left lower lobe. The patient is seen today 06/05/2019 in follow-up on the regular medical floor. She is currently awake and alert in no acute distress. On room air. No complaints of shortness of breath cough or congestion. No fever chills or night sweats. CAT scan revealed interstitial fibrosis, extensive scattered scarring and prior granulomatous disease. There is [place]long masslike opacity along the right minor fissure measuring 4.6 weight 2.2 x 1.9 cm. Suspect pseudotumor. There is additional irregular opacities in the lower lobes. Cannot completely exclude neoplasm. She had undergone x-rays of the right shoulder and pelvis due to a fall. She does not have any acute fractures. Similar fractures of the right sacral allow and right superior/inferior pubic rami are noted again. Orthopedics are following. Objective - Vital Signs Vital signs: Vital Signs Temp 98.2 F 06/05/19 07:00 Pulse 92 06/05/19 07:00 Resp 17 06/05/19 07:00 BP 125/80 06/05/19 07:00 Pulse Ox 92 L 06/05/19 07:00 Intake & Output 06/04/19 06/05/19 06/05/19 18:59 06:59 18:59 Intake Total 742 316 Output Total 900 Balance 742 -584 Intake: Intake, IV Titration 150 Amount Sodium Chloride 0.9% 1, 100 000 ml @ 20 mls/hr IV . Q24H SAMINA Rx#:[id number] cefTRIAXone 1 gm In 50 Sodium Chloride 0.9% 50 ml @ 100 mls/hr IVPB Q24HR SAMINA Rx#:[id number] Oral 592 316 Output: Urine 900 Other: Voiding Method Indwelling Catheter Indwelling Catheter - Exam GENERAL EXAM: Alert, pleasant 84-year-old female patient, resting in bed, on room air comfortable in no apparent distress. HEAD: Normocephalic. EYES: Normal reaction of pupils, equal size. NOSE: Clear with pink turbinates. THROAT: No erythema or exudates. NECK: No masses, no JVD. CHEST: No chest wall deformity. LUNGS: Equal air entry with few scattered rhonchi. CVS: S1 and S2 normal with no audible murmur, regular rhythm. ABDOMEN: No hepatosplenomegaly, normal bowel sounds, no guarding or rigidity. SPINE: No scoliosis or deformity SKIN: No rashes CENTRAL NERVOUS SYSTEM: No focal deficits, tone is normal in all 4 extremities. EXTREMITIES: There is no peripheral edema. No clubbing, no cyanosis. Peripheral pulses are intact. - Labs CBC & Chem 7: 06/03/19 11:16 06/03/19 11:16 Labs: Abnormal Lab Results - Last 24 Hours (Table) 06/04/19 Range/Units 15:17 Procalcitonin 0.13 H (0.02-0.09) ng/mL Assessment and Plan Assessment: 1 Frequent falls with right pelvic fracture being followed by orthopedics 2 Interstitial fibrosis, extensive scattered scarring and prior granulomatous disease 3 [place] masslike opacity in the right minor fissure measuring 4.6 x 2.2 x 1.9 cm. Pseudotumor within the differential cannot exclude neoplasm. Additionally irregular opacity in the left lower lobe measuring 3.4 x 2.2 x 1.5 cm. Cannot completely exclude neoplasm. 4 Mild chronic obstructive pulmonary disease. 5 Dementia. 6 Hypothyroidism. Plan: The patient was seen and evaluated by Dr. Alegria. CAT scan was reviewed. Would recommend follow-up CAT scan in 3 months time. The patient would be a poor candidate for any invasive testing at this point. Stable for discharge from the pulmonary standpoint. We will see on as-needed basis. I, the cosigning physician, performed a history & physical examination of the patient. Lungs sounds with few scattered rhonchi. Maintaining good O2 saturations in the 90s on room air. I discussed the assessment and plan of care with my nurse practitioner, Deena Rankin. I attest to the above note as dictated by her.
[2019-06-05] MEDS: SODIUM CHLORIDE 0.9% 1,000 ML IV SCH (14:22)
--- NOTE | 2019-06-05 15:15 | P.PN ---
Subjective Progress Note Date: 06/05/19 This is an 84-year-old female patient of Dr. Herndon with past medical history of dementia, neuropathy, glaucoma, vertigo, osteoporosis, hypertension, hypothyroidism status post partial thyroidectomy. The patient was found lying face down on the floor at home. She resides at [facility] and sister along with 4 hired caregivers take care of her at home. Patient was then complaining of right hip pain and was brought into [facility] emergency center for evaluation. X-rays of the pelvis showed mild displaced fractures of the superior inferior right pubic rami as well as sacral alar fracture, osteopenia. Chest x-ray suspected COPD with chronic parenchymal changes. Focal opacities at the right lower lung appears larger from prior. Recurrent pneumonia or underlying masses are differential considerations. CAT scan of the brain and cervical spine negative for acute findings. Patient admitted to the [facility] floor and consult obtained with orthopedics with plan for conservative management. 06/05: Patient has been seen by Dr. Alegria and he ordered a CAT scan of the chest which revealed interstitial fibrosis with extensive scarring and prior granu lomatosis disease. On lung masslike opacities 4.6 x 2.2 x 1.9 cm suggestive fluid or soft tissue density with recommendations for 3 month follow-up. Additional irregular opacities left lower lobe 3.4 x 2.2 x 1.5 cm. Follow-up to exclude neoplasm. COPD with mild emphysema. Pulmonary artery hypertension and CAD. Pneumonia has been ruled out and antibiotics discontinued. Patient had significant confusion during the night and was trying to get out of bed. Patient had a fall last night and complained of neck and right shoulder pain for which x-rays of been ordered. Patient is afebrile, heart rate 92, blood pressure 125/80, pulse ox 92% on room air. Pro-calcitonin 0.13. We'll discuss results of CAT scan with family tomorrow. Do not anticipate any further interventions due to patient's overall medical conditions. [facility] Review of Systems ROS unobtainable: due to mental status Constitutional: Denies chills, Denies fatigue, Denies fever, Denies poor appetite Ears, nose, mouth and throat: Denies headache Cardiovascular: Denies chest pain, Denies shortness of breath Gastrointestinal: Denies abdominal pain, Denies diarrhea, Denies nausea, Denies vomiting Musculoskeletal: Reports gait dysfunction, Reports muscle weakness Integumentary: Denies pruritus, Denies rash Neurological: Reports gait dysfunction, Denies change in mentation, Denies numbness, Denies weakness Psychiatric: Denies anxiety, Denies depression Endocrine: Denies fatigue, Denies weight change Objective - Vital Signs Vital signs: Vital Signs Temp 98.2 F 06/05/19 07:00 Pulse 92 06/05/19 07:00 Resp 17 06/05/19 07:00 BP 125/80 06/05/19 07:00 Pulse Ox 92 L 06/05/19 07:00 Intake & Output 06/04/19 06/05/19 06/05/19 18:59 06:59 18:59 Intake Total 742 316 Output Total 900 Balance 742 -584 Intake: Intake, IV Titration 150 Amount Sodium Chloride 0.9% 1, 100 000 ml @ 20 mls/hr IV . Q24H SAMINA Rx#:[id number] cefTRIAXone 1 gm In 50 Sodium Chloride 0.9% 50 ml @ 100 mls/hr IVPB Q24HR SAMINA Rx#:[id number] Oral 592 316 Output: Urine 900 Other: Voiding Method Indwelling Catheter Indwelling Catheter - Exam Gen: This is an 84-year-old female resting in bed and appears to be co mfortable and in no acute distress. HEENT: Head is atraumatic, normocephalic. Pupils equal, round. Sclerae is anicteric. NECK: Supple. No JVD. No lymphadenopathy. No thyromegaly. LUNGS: Clear to auscultation. No wheezes or rhonchi. No egophony. No intercostal retractions. HEART: Regular rate and rhythm. No murmur. ABDOMEN: Soft. Bowel sounds are present. No masses. No tenderness. Tenderness in the right groin EXTREMITIES: No pedal edema. Dorsalis pedis and posterior tibial pulses are strong bilaterally. No calf tenderness. Bilateral hammertoes NEUROLOGICAL: Patient is awake, alert and oriented to person. Mild generalized weakness. No focal neural deficits. - Labs CBC & Chem 7: 06/03/19 11:16 06/03/19 11:16 Labs: Abnormal Lab Results - Last 24 Hours (Table) 06/04/19 Range/Units 15:17 Procalcitonin 0.13 H (0.02-0.09) ng/mL Assessment and Plan Plan: 1. Mildly displaced fractures of this. Her inferior right pubic rami as well as sacral allar. Orthopedic consult appreciated. No plans for surgical intervention. Patient is protected weightbearing with walker as tolerated with physical therapy. Continue Tylenol only for pain control. 2. Possible pneumonia ruled out. CAT scan above with 2 masses possible neoplasm. Consult with Dr. Alegria appreciated. Plan to discuss results with family tomorrow. Do not anticipate further intervention due to patient's overall medical conditions.. 3. Hypertension. Continue valsartan 40 mg at bedtime. 4. Glaucoma. Continue eye drops. 5. Osteopenia. 6. Dementia, stable. 7. DVT prophylaxis. Lovenox. 8. GI prophylaxis. Pepcid. Discharge plan: [facility] on Thursday Impression and plan of care have been directed as dictated by the signing physician. Gaby Astorga nurse practitioner acting as scribe for signing physician.
[2019-06-05] MEDS: POLYETHYLENE GLYCOL 3350 17 GM POWD.PACK PO SCH (16:40)
[2019-06-05] MEDS: VALSARTAN 40 MG TAB PO SCH ×2 (20:35→21:35)
[2019-06-05] MEDS: LATANOPROST 0.005% OPHTH DROPS 2.5 ML BTL BOTH EYES SCH (20:35)
[2019-06-05] MEDS: MELATONIN 3 MG TABLET PO SCH (20:35)
[2019-06-06] MEDS: ACETAMINOPHEN TAB 325 MG TAB PO PRN ×2 (05:49→13:08)
[2019-06-06] MEDS: ENOXAPARIN 40 MG/0.4 ML SYRINGE SQ SCH (08:02)
[2019-06-06] MEDS: CALCIUM CARB-VIT D 500MG-200UN 1 EACH TAB PO SCH (08:02)
[2019-06-06] MEDS: MULTIVITAMINS, THERA 1 EACH TAB PO SCH (08:02)
[2019-06-06] MEDS: CYANOCOBALAMIN 500 MCG TAB PO SCH (08:02)
[2019-06-06] MEDS: FAMOTIDINE 20 MG TAB PO SCH (08:02)
[2019-06-06] MEDS: ASPIRIN 81 MG PO SCH (08:02)
[2019-06-06] MEDS: POLYETHYLENE GLYCOL 3350 17 GM POWD.PACK PO SCH (08:03)
[2019-06-06 08:17] VITALS: BP 128/82; PULSE 69; RESP 16; TEMP 97.9
--- NOTE | 2019-06-06 09:29 | P.DS ---
Providers Date of admission: 06/03/19 13:36 Expected date of discharge: 06/06/19 Attending physician: Andrea Lima MD Consults: 06/03/19 13:25 Consult Physician Routine Consulting Provider: Frank Davis Consult Reason/Comments: pelvic fractures Do you want consulting provider notified?: Already Contacted 06/04/19 07:54 Consult Physician Routine Consulting Provider: Nakul Alegria Consult Reason/Comments: possible pneumonia Do you want consulting provider notified?: Yes Primary care physician: Bertram Herndon [facility] Course: This is an 84-year-old female patient of Dr. Herndon with past medical history of dementia, neuropathy, glaucoma, vertigo, osteoporosis, hypertension, hypothyroidism status post partial thyroidectomy. The patient was found lying face down on the floor at home. She resides at [facility] and sister along with 4 hired caregivers take care of her at home. Patient was then complaining of right hip pain and was brought into [facility] emergency center for evaluation. X-rays of the pelvis showed mild displaced fractures of the superior inferior right pubic rami as well as sacral alar fracture, osteopenia. Chest x-ray suspected COPD with chronic parenchymal changes. Focal opacities at the right lower lung appears larger from prior. Recurrent pneumonia or underlying masses are differential considerations. CAT scan of the brain and cervical spine negative for acute findings. Patient admitted to the [facility] and consult obtained with orthopedics with plan for conservative management. 06/05: Patient has been seen by Dr. Alegria and he ordered a CAT scan of the chest which revealed interstitial fibrosis with extensive scarring and prior granulomatosis disease. On lung masslike opacities 4.6 x 2.2 x 1.9 cm suggestive fluid or soft tissue density with recommendations for 3 month follow- up. Additional irregular opacities left lower lobe 3.4 x 2.2 x 1.5 cm. Follow- up to exclude neoplasm. COPD with mild emphysema. Pulmonary artery hypertension and CAD. Pneumonia has been ruled out and antibiotics discontinued. Patient had significant confusion during the night and was trying to get out of bed. Patient had a fall last night and complained of neck and right shoulder pain for which x-rays of been ordered. Patient is afebrile, heart rate 92, blood pressure 125/80, pulse ox 92% on room air. Pro-calcitonin 0.13. We'll discuss results of CAT scan with family tomorrow. Do not anticipate any further interventions due to patient's overall medical conditions. Anticipate discharge to [facility] tomorrow. 06/06: The patient has had no events overnight. Discussed with patient's sister Priscilla over the phone results of CAT scan and currently plan is for conservative management possible repeat CAT scan in 3 months. Patient denies having any pain. She denies pain in her shoulder, neck and also pelvic area. X-ray of the shoulder, neck and repeat pelvis x-ray showed no additional acute findings. There is osteoarthritic changes. Patient has Rodriguez catheter which will be discontinued at the shelter. Discharge diagnoses: 1. Mildly displaced fractures of inferior right pubic rami as well as sacral allar. Patient is protected weightbearing with walker as tolerated with physical therapy. 2. Possible pneumonia. CAT scan above with 2 masses possible neoplasm. 3. Hypertension. 4. Glaucoma. 5. Osteopenia. 6. Dementia, stable. Discharge plan: [facility] on Thursday Impression and plan of care have been directed as dictated by the signing physician. Gaby Astorga nurse practitioner acting as scribe for signing physician. Patient Condition at Discharge: Good Plan - Discharge Summary Discharge Rx Participant: No New Discharge Prescriptions: New Bisacodyl [Dulcolax] 10 mg PO DAILY PRN tablet. PRN Reason: Constipation Polyethylene Glycol 3350 [Miralax] 17 gm PO DAILY powd.pack Acetaminophen Tab [Tylenol] 650 mg PO Q6HR PRN tab PRN Reason: Fever And/ Or Pain Azithromycin [Zithromax] 500 mg PO DAILY #7 tab Continue Aspirin EC [Ecotrin Low Dose] 81 mg PO DAILY Prevagen (Memory Vitamin) 1 tab PO HS Multivit-Min/Iron/Folic/Lutein [Centrum Silver Women Tablet] 1 tab PO DAILY Cyanocobalamin (Vitamin B-12) [Vitamin B-12] 1,000 mcg PO DAILY Calcium Carbonate/Vitamin D3 [Calcium 600-Vit D3 400 Caplet] 1 tab PO BID Latanoprost/Pf [Latanoprost 0.005% Eye Drop] 1 drop BOTH EYES HS Dorzolamide-Timol 2.23%/0.68% [Cosopt] 1 drop BOTH EYES BID Melatonin 3 mg PO HS Cod Liver Oil 1 cap PO BID Valsartan 40 mg PO HS Discharge Medication List Aspirin EC [Ecotrin Low Dose] 81 mg PO DAILY 05/24/18 [History] Calcium Carbonate/Vitamin D3 [Calcium 600-Vit D3 400 Caplet] 1 tab PO BID 05/24/18 [History] Cyanocobalamin (Vitamin B-12) [Vitamin B-12] 1,000 mcg PO DAILY 05/24/18 [History] Dorzolamide-Timol 2.23%/0.68% [Cosopt] 1 drop BOTH EYES BID 05/24/18 [History] Latanoprost/Pf [Latanoprost 0.005% Eye Drop] 1 drop BOTH EYES HS 05/24/18 [History] Multivit-Min/Iron/Folic/Lutein [Centrum Silver Women Tablet] 1 tab PO DAILY 05/24/18 [History] Prevagen (Memory Vitamin) 1 tab PO HS 05/24/18 [History] Cod Liver Oil 1 cap PO BID 06/03/19 [History] Melatonin 3 mg PO HS 06/03/19 [History] Valsartan 40 mg PO HS 06/03/19 [History] Acetaminophen Tab [Tylenol] 650 mg PO Q6HR PRN tab 06/06/19 [Rx] Azithromycin [Zithromax] 500 mg PO DAILY #7 tab 06/06/19 [Rx] Bisacodyl [Dulcolax] 10 mg PO DAILY PRN tablet.dr 06/06/19 [Rx] Polyethylene Glycol 3350 [Miralax] 17 gm PO DAILY powd.pack 06/06/19 [Rx] Follow up Appointment(s)/Referral(s): Frank Davis MD [STAFF PHYSICIAN] - 1 Week Bertram Herndon MD [Primary Care Provider] - 1 Week (after discharge from [facility]) Activity/Diet/Wound Care/Special Instructions: WBAT with walker and assist F/U with Dr. Davis in one week Discharge Disposition: TRANSFER TO SNF/ECF
--- NOTE | 2019-06-09 05:32 | CDI ---
Documentation Clarification Form Date: 06/09/2019 From: Gene Gamez Phone: If you have a question about this query, please contact Carly Downey, End [employer]inder Forming Department at [phone] between 8am and 5pm. Admit Date: 06/03/2019 Discharge Date: 06/06/2019 Patient Name: Leslie Quiroga Visit Number: [id number] ATTENTION: The Clinical Documentation Specialists (CDI) and [facility] Coding Staff appreciate your assistance in clarifying documentation. Please respond to the clarification below the line at the bottom and electronically sign. The CDI & [facility] Coding staff will review the response and follow-up if needed. Please note: Queries are made part of the Legal Health Record. If you have any questions, please contact the author of this message via ITS. Dear Gloria Atkins., Patient has been diagnosed Mildly displaced fractures of inferior right pubic rami as well as sacral allar. Patient history/risk factors: Osteoporosis, Osteopenia, 84 years. X-ray Hip: 1.Right sacral alar fracture. 2.Mildly displaced fractures of the right superior and inferior pubic rami. 3.Osteopenia without any displaced proximal femoral fracture. Treatment: Continue Tylenol only for pain control. In your professional opinion, please specify the Type of Fracture : Traumatic fracture secondary to Fall. Pathological fracture Due to Osteoporosis (specify type if known) Other (please specify): Pathological fracture due to senile osteoporosis MTDD
--- NOTE | 2019-06-09 05:43 | CDI ---
Documentation Clarification Form Date: 06/09/2019 From: Gene Gamez Phone: If you have a question about this query, please contact Carly Downey, Career Services Representative at [phone] between 8am and 5pm. Admit Date: 06/03/2019 Discharge Date:06/06/2019 Patient Name: Leslie Quiroga Visit Number: [id number] ATTENTION: The Clinical Documentation Specialists (CDI) and [facility] Coding Staff appreciate your assistance in clarifying documentation. Please respond to the clarification below the line at the bottom and electronically sign. The CDI & [facility] Coding staff will review the response and follow-up if needed. Please note: Queries are made part of the Legal Health Record. If you have any questions, please contact the author of this message via ITS. Dear Gloria Atkins., Pneumonia was documented in DS note as " Possible pneumonia.CAT scan above with 2 masses possible neoplasm" History/Risk Factors: Pneumonia.,pelvic fracture, Emphysema, Repeated falls. Vital signs:Pulse Rate 75 71 Respiratory 18 17 O2 Sat by Pulse 97 98 WBC/Left shift: 13.1 X-ray:Recurrent pneumonia or underlying mass are differential considerations. Treatment: Antibiotics Antibiotics :Rocephin, Azithromycin. DC'd with Zithromax. 06/05 Progress note mentioned as "Pneumonia has been ruled out and antibiotics discontinued" Under Discharge diagnosis "Possible pneumonia.CAT scan above with 2 masses possible neoplasm" and Discharged with Zithromax. In order to capture the severity of condition, please clarify the condition: Pneumonia Ruled in Pneumonia Ruled out Other Pneumonia can not entirely ruled out MTDD
== END 2019-06-06 16:23 ==
LOC: EC 10:36 → EEVIPCON 10:36 → INTOOBSV 13:36 → 4SSUR 13:36 → UNDODISIN 06-06 16:23
PROVIDERS: ADMIT Internal Medicine; ATTEND Internal Medicine
DX: M80.051A Age-related osteoporosis with current pathological fracture, right femur, initial encounter for fracture (principal); F03.90 Unspecified dementia, unspecified severity, without behavioral disturbance, psychotic disturbance, mood disturbance, and anxiety; E89.0 Postprocedural hypothyroidism; I10 Essential (primary) hypertension; I25.10 Atherosclerotic heart disease of native coronary artery without angina pectoris; M19.90 Unspecified osteoarthritis, unspecified site; I27.21 Secondary pulmonary arterial hypertension; G62.9 Polyneuropathy, unspecified; W18.30XA Fall on same level, unspecified, initial encounter; J43.9 Emphysema, unspecified; R29.6 Repeated falls; Z87.01 Personal history of pneumonia (recurrent); Z82.49 Family history of ischemic heart disease and other diseases of the circulatory system; Z83.3 Family history of diabetes mellitus; Z87.891 Personal history of nicotine dependence; Z98.42 Cataract extraction status, left eye; Z98.41 Cataract extraction status, right eye; Y92.009 Unspecified place in unspecified non-institutional (private) residence as the place of occurrence of the external cause; Z79.82 Long term (current) use of aspirin; Z88.0 Allergy status to penicillin
CPT/HCPCS: 96372 ×2; 96365; 99285; 36415; 93005; 97530; 97163; 97167; 80048; 82550; 83605; 83735; 84484; 85025; 85610; 85730; 81003; 84145; 72040; 72170; 73502; 73020; 71045; 72125; 70450; 71260; G0378 ×4; J1650 ×2; J0696; Q9967